=== PATIENT | male | born 2000 | race Hispanic/Latino ===

== ENCOUNTER 2024-08-14 12:53 | Inpatient (IN) | payer SELFPAY ==
[~2024-08-14] VITALS: Ht 165.1 cm; Wt 116.6 kg
[2024-08-14] VITALS (8 sets, daily range): BP systolic 113–151; BP diastolic 55–75; PULSE 81–100; RESP 10–28; TEMP 98.2–98.4; O2SAT 99–100
[2024-08-14] MEDS: ondanSETRON 4MG INJ IVP ONE (13:18)
[2024-08-14] MEDS: LIDOCAINE HCL 2% VISCOUS 15 ML UDCUP PO ONE (13:18)
[2024-08-14] MEDS: LACTATED RINGERS 1000ML 1,000 ML IV ONE (13:18)
[2024-08-14] MEDS: PANTOPrazole 40 MG/VIAL IVP ONE (13:18)
[2024-08-14] MEDS: MAG/ALUM/SIMETH 30 ML UDCUP PO ONE (13:18)
[2024-08-14 13:35] LABS: BASOPHILS # (AUTO) 0.05 K/uL (0.00-0.20); BASOPHILS % (AUTO) 0.4 % (0.0-5.0); EOSINOPHILS # (AUTO) 0.01 K/uL (0.00-0.70); EOSINOPHILS % (AUTO) 0.1 % (0.0-8.0); HEMATOCRIT 51.8 % (42-54); IMMATURE GRANULOCYTE ABSOLUTE 0.07 K/uL (0-1); LYMPHOCYTES # (AUTO) 0.7 K/uL (1.0-4.8); LYMPHOCYTES % (AUTO) 5.5 % (21.0-51.0); MEAN CORPUSCULAR HEMOGLOBIN 28.3 pg (27.0-33.0); MEAN CORPUSCULAR HGB CONC 32.2 g/dL (32.0-36.0); MEAN CORPUSCULAR VOLUME 87.6 fL (79-99); MONOCYTES # (AUTO) 0.6 K/uL (0.1-1.0); MONOCYTES % (AUTO) 4.2 % (3.0-13.0); NEUTROPHILS # (AUTO) 11.6 K/uL (1.8-7.7); NEUTROPHILS % (AUTO) 89.3 % (40.0-77.0); PLATELET COUNT (AUTO) 370 K/uL (130-400); RED BLOOD CELL COUNT(AUTO) 5.91 MIL/uL (4.50-6.20); RED CELL DISTRIBUTION WIDTH 15.6 % (11.0-15.5)
[2024-08-14 13:45] LABS: AMPHET/METH SCREEN,URINE NEGATIVE (NEGATIVE); BARBITURATE SCREEN, URINE NEGATIVE (NEGATIVE); BENZODIAZEPINES SCREEN,URINE NEGATIVE (NEGATIVE); CANNABINOID SCREEN,URINE POSITIVE (NEGATIVE); COCAINE SCREEN,URINE NEGATIVE (NEGATIVE); OPIATE SCREEN,URINE NEGATIVE (NEGATIVE); PHENCYCLIDINE SCREEN,URINE NEGATIVE (NEGATIVE)
[2024-08-14 13:48] LABS: APPEARANCE,URINE CLOUDY (CLEAR); BILIRUBIN,URINE NEGATIVE (NEGATIVE); COLOR,URINE LIGHT-YELLOW (YELLOW); GLUCOSE, URINE (UA) >=1000 mg/dL (NEGATIVE); KETONES,URINE 150 mg/dL (NEGATIVE); LEUKOCYTE ESTERASE ,URINE 500 Leu/uL (NEGATIVE); NITRATE,URINE NEGATIVE (NEGATIVE); OCCULT BLOOD,URINE MODERATE (NEGATIVE); PH,URINE 5.5 (5.0-8.0); PROTEIN,URINE 100 mg/dL (NEGATIVE); UROBILINOGEN,URINE 0.2 mg/dL (0.2-1.0)
[2024-08-14 13:50] LABS: ADD UA MICROSCOPIC YES
[2024-08-14 13:51] LABS: ALBUMIN 4.8 g/dL (3.5-5.0); BILIRUBIN,TOTAL 0.7 mg/dL (0.2-1.0); CREATININE 1.7 mg/dL (0.5-1.3); POTASSIUM 3.6 mmol/L (3.5-5.1); TOTAL PROTEIN, SERUM 9.8 g/dL (6.0-8.3)
[2024-08-14 13:53] LABS: BACTERIA,URINE FEW /HPF (None Seen); MUCUS,URINE RARE LPF (None Seen); SQUAMOUS EPITHELIAL CELL,UR FEW /HPF (0-2); WBC,URINE 26-50 /HPF (0-1)
[2024-08-14] MEDS: INSULIN humuLIN R 100 UNIT/ML 3ML IV ONE (14:14)
[2024-08-14 14:21] LABS: ABG BASE EXCESS -19.5 mmol/L (-2.0-3.0); ABG OXYGEN SATURATION 97.7 % (94.0-98.0); ABG PCO2 16 mmHg (35-48); ABG PH 7.194 (7.350-7.450); CARBON MONOXIDE 0.5 % (0.5-1.5); HHb 2.3; PO2, ARTERIAL BG 107.2 mmHg (83.0-108.0); VENT MODE, BG RA (ROOM AIR)
--- NOTE | 2024-08-14 14:41 | ERN ---
General Chief Complaint: Abdominal Pain Stated Complaint: ABDOMINAL PAIN Time Seen by MD: 12:56 Source: patient, EMS History of Present Illness Initial Comments PATIENT IS A 24-YEAR-OLD MALE COMING IN TO BE EVALUATED FOR NAUSEA AND VOMITING. PATIENT STATES THE SYMPTOMS BEGAN A COUPLE OF DAYS AGO. PATIENT ALSO STATES THAT HE DOES HAVE A HISTORY OF CANNABIS ABUSE BUT HAS NOT SMOKED CANNABIS IN A COUPLE OF THE MONTHS. Allergies: Coded Allergies: No Known Drug Allergies (Unverified Allergy, Unknown, 08/14/24) Past Medical History Past Medical History: No Pertinent History Past Surgical History: None ROS Dictation CONSTITUTIONAL: NO CHILLS, NO FEVER, WEAKNESS, DIAPHORESIS, MALAISE. HEAD/FACE: NO SIGNS OF TRAUMA. EENT: NO EYE PAIN, NO BLURRED VISION, NO TEARING, NO DOUBLE VISION, NO EAR PAIN, NO EAR DISCHARGE, NO NOSE PAIN, NO NASAL CONGESTION, NO THROAT PAIN, NO THROAT SWELLING, NO MOUTH PAIN. RESPIRATORY: NO COUGH, NO ORTHOPNEA, NO SOB, NO STRIDOR, NO WHEEZING. CARDIOVASCULAR: NO CHEST PAIN, NO EDEMA, NO PALPITATIONS, NO SYNCOPE. GASTROINTESTINAL/ABDOMINAL: NO ABDOMINAL PAIN, NO CONSTIPATION, NO DIARRHEA, NO NAUSEA, NO VOMITING. GENITOURINARY: NO ABNORMAL DISCHARGE, NO DYSURIA, NO FREQUENT URINATION, NO HEMATURIA. NO COMPLAINTS OF PAIN IN THE GENITALS. MUSCULOSKELETAL: NO BACK PAIN, NO GOUT, NO JOINT PAIN, NO JOINT SWELLING, NO MUSCLE PAIN, NO MUSCLE STIFFNESS, NO NECK PAIN. INTEGUMENTARY: NO CHANGE IN COLOR, NO CHANGE IN HAIR/NAILS, NO DRYNESS, NO LESION, NO LUMPS, NO RASH. NEUROLOGICAL/PSYCH: NO ANXIETY, NOT DEPRESSED, NO EMOTIONAL PROBLEM, NO HEADACHE, NO NUMBNESS, NO PRE-EXISTING DEFICIT, NO HISTORY OF SEIZURES, NO TREMORS, NO WEAKNESS. HEMATOLOGIC/LYMPHATIC: NOT ANEMIC, NO HISTORY OF BLOOD CLOTS, NO APPARENT BLEEDING, NO BRUISING, GLANDS NOT SWOLLEN. ALL SYSTEMS NEGATIVE, EXCEPT NOTED. Physical Exam Physical Exam Dictation VITAL SIGNS: REVIEWED. GENERAL APPEARANCE: ALERT, ORIENTED X3, ACUTE DISTRESS, OBESE. HEAD AND FACE: NON-TRAUMATIC. EYES: PERRL, PINK CONJUNCTIVAS, EYELID NO TRAUMA, ANTERIOR CHAMBER CLEAR. EARS: PINNAS INTACT AND NO SIGNS OF TRAUMA OR ERYTHEMA. EAR CANALS CLEAR AND NO DISCHARGE. TMS NO ERYTHEMA. NOSE: NO DISCHARGE, NO BLEEDING. OROPHARYNX: MOUTH NORMAL, TEETH NO CARIES, TONGUE PINK. PHARYNX CLEAR, NO ERYTHEMA. TONSILS NO EXUDATES, NO ABSCESSES NOTED. MUCOUS MEMBRANE MOIST. NECK: SUPPLE, NON-TENDER, NO THYROMEGALY, NO MASSES, NO JVD, NO BRUITS. BREAST: DEFERRED. CHEST: NO TENDERNESS, NO CREPITUS, NO PARADOXICAL MOVEMENT, NO RETRACTIONS. LUNGS: CLEAR, WELL-VENTILATED, SYMMETRIC, NO RALES, NO WHEEZING, NO RHONCHI, NO STRIDOR, GOOD BREATH SOUNDS BILATERALLY. HEART: REGULAR RATE, REGULAR RHYTHM, NO MURMUR, NO GALLOPS. VASCULAR: NO PERIPHERAL EDEMA. ABDOMEN: SOFT, POSITIVE BOWEL SOUNDS, NONDISTENDED, NO GUARDING, NONTENDER, NO REBOUND, NO MASSES NO HEPATOMEGALY, NO SPLENOMEGALY, NO PANDEY'S SIGN, NO HERNIAS. RECTAL: DEFERRED. GENITAL: DEFERRED. NEUROLOGICAL: NORMAL SPEECH, GROSS MOTOR FUNCTION INTACT, GROSS SENSORY FUNCTION INTACT. MUSCULOSKELETAL: NECK NONTENDER, FULL RANGE OF MOTION, BACK NONTENDER, FULL RANGE OF MOTION. EXTREMITIES: NONTENDER, FULL RANGE OF MOTION. SKIN: COLOR PINK, DRY, NO TURGOR, NO RASH, NO LACERATIONS, NO ABRASIONS, NO CONTUSIONS. LYMPHATICS: DEFERRED. Results Laboratory and Microbiology Lab and Micro Result Laboratory Tests Test 08/14/24 13:11 08/14/24 13:14 08/14/24 14:09 08/14/24 14:18 Urine Color LIGHT-YELLOW (YELLOW) Urine Appearance CLOUDY (CLEAR) H Urine pH 5.5 (5.0-8.0) Urine Specific [place] 1.030 (1.001-1.031) Urine Protein 100 mg/dL (NEGATIVE) H Urine Glucose (UA) >=1000 mg/dL (NEGATIVE) H Urine Ketones 150 mg/dL (NEGATIVE) H Urine Occult Blood MODERATE (NEGATIVE) H Urine Nitrate NEGATIVE (NEGATIVE) Urine Bilirubin NEGATIVE mg/dL (NEGATIVE) Urine Urobilinogen 0.2 mg/dL (0.2-1.0) Urine Leukocyte Esterase 500 Jun/uL (NEGATIVE) H Urine RBC 11-25 /HPF (0-1) H Urine WBC 26-50 /HPF (0-1) H Urine Squamous Epithelial Cells FEW /HPF (0-2) Urine Bacteria FEW /HPF (None Seen) Urine Opiates Screen NEGATIVE (NEGATIVE) Urine Barbiturates Screen NEGATIVE (NEGATIVE) Urine Phencyclidine Screen NEGATIVE (NEGATIVE) Urine Amphetamines Screen NEGATIVE (NEGATIVE) Urine Benzodiazepines Screen NEGATIVE (NEGATIVE) Urine Cocaine Screen NEGATIVE (NEGATIVE) Urine Marijuana (THC) Screen POSITIVE (NEGATIVE) H White Blood Count 13.0 K/uL (4.8-10.8) H Red Blood Count 5.91 MIL/uL (4.50-6.20) Hemoglobin 16.7 g/dL (14.0-18.0) Hematocrit 51.8 % (42-54) Mean Corpuscular Volume 87.6 fL (79-99) Mean Corpuscular Hemoglobin 28.3 pg (27.0-33.0) Mean Corpuscular Hemoglobin Concent 32.2 g/dL (32.0-36.0) Red Cell Distribution Width 15.6 % (11.0-15.5) H Platelet Count 370 K/uL (130-400) Mean Platelet Volume 13.1 fL (7.5-10.5) H Immature Granulocyte % (Auto) 0.5 % (0-1) Neutrophils (%) (Auto) 89.3 % (40.0-77.0) H Lymphocytes (%) (Auto) 5.5 % (21.0-51.0) L Monocytes (%) (Auto) 4.2 % (3.0-13.0) Eosinophils (%) (Auto) 0.1 % (0.0-8.0) Basophils (%) (Auto) 0.4 % (0.0-5.0) Neutrophils # (Auto) 11.6 K/uL (1.8-7.7) H Lymphocytes # (Auto) 0.7 K/uL (1.0-4.8) L Monocytes # (Auto) 0.6 K/uL (0.1-1.0) Eosinophils # (Auto) 0.01 K/uL (0.00-0.70) Basophils # (Auto) 0.05 K/uL (0.00-0.20) Absolute Immature Granulocyte (auto 0.07 K/uL (0-1) Nucleated Red Blood Cells 0.0 % (0.0-0.19) White Cell Morphology Comment See comments Sodium Level 132 mmol/L (136-145) L Potassium Level 3.6 mmol/L (3.5-5.1) Chloride Level 95 mmol/L (101-111) L Carbon Dioxide Level 11 mmol/L (21-32) L Blood Urea Nitrogen 10 mg/dL (7-18) Creatinine 1.7 mg/dL (0.5-1.3) H Glomerular Filtration Rate Calc 57 mL/min (>90) Random Glucose 439 mg/dL (70-105) *H Total Calcium 9.2 mg/dL (8.5-10.1) Total Bilirubin 0.7 mg/dL (0.2-1.0) Aspartate Amino Transf (AST/SGOT) 16 U/L (10-37) Alanine Aminotransferase (ALT/SGPT) 47 U/L (12-78) Alkaline Phosphatase 152 U/L (50-136) H Total Creatine Kinase 153 U/L (21-232) Total Protein 9.8 g/dL (6.0-8.3) H Albumin 4.8 g/dL (3.5-5.0) Lipase 165 U/L (16-77) H Whole Blood Ketones Quantitative 5.2 mmol/L (0.0-0.6) H Blood Gas Specimen Type Arterial Arterial Blood pH 7.194 (7.350-7.450) Arterial Blood Partial Pressure CO2 16 mmHg (35-48) *L Arterial Blood Partial Pressure O2 107.2 mmHg (83.0-108.0) Arterial Blood HCO3 6.0 mmol/L (21.0-28.0) L Arterial Blood Oxygen Saturation 97.7 % (94.0-98.0) Arterial Blood Base Excess -19.5 mmol/L (-2.0-3.0) L Hemoglobin (Blood Gas) 15.5 g/dL (13.5-17.5) Sodium (Blood Gas) 134 MMOL/L (136-145) L Bedside Potassium (Blood Gas) 3.9 MMOL/L (3.4-4.5) Bedside Chloride (Blood Gas) 104 MMOL/L (98-107) Bedside Glucose (Blood Gas) 418 MG/DL (65-95) H Bedside Ionized Calcium (Blood Gas) 1.33 MMOL/L (1.15-1.33) Bedside Lactic Acid (Blood Gas) 1.72 MMOL/L (0.36-0.75) H Blood Gas Temperature 37.0 CELSIUS (35.5-37.0) Blood Gas Vent Mode RA (ROOM AIR) FiO2 21.0 % Blood Gas Specimen Comment RR, Labs Reviewed?: Yes EKG/XRAY/US/CT/MRI EKG Comment 04/13/2024 TIME 2:48 P.M. VENTRICULAR RATE [address] [place] [address] WAVE ELEVATION OR DEPRESSION MDM MDM: DIFFERENTIAL DIAGNOSIS: DKA, NAUSEA AND VOMITING, CANNABIS ABUSE RATIONALE: TESTS CONSIDERED AND ORDERED SECONDARY TO SHARED DECISION MAKING INCLUDE: PREVIOUS OUTSIDE RECORDS REVIEWED: OLD ER VISITS. RISK OF COMPLICATION AND/OR MORBIDITY OR MORTALITY OF PATIENT MANAGEMENT: NONE MEDICATIONS-PER MEDICATION RECONCILIATION NEED FOR HOSPITALIZATION: PATIENT DOES NOT MEET CRITERIA FOR HOSPITALIZATION. NEED FOR EMERGENCY MAJOR/MINOR SURGERY: NO THERE ARE NO SOCIAL CONCERNS WITH THIS PATIENT. PRESCRIPTION DRUG MANAGEMENT PRESCRIPTIONS WILL INCLUDE SYMPTOMATIC CARE PATIENT'S PRIOR EXTERNAL MEDICAL RECORDS FROM OTHER ER VISITS WERE REVIEWED BY ME INDICATED. PRIOR TESTING AND RESULTS FROM PREVIOUS VISITS WERE REVIEWED. PRIOR TESTS WERE TAKEN INTO ACCOUNT WITH MEDICAL DECISION MAKING AND RESOURCE UTILIZATION, INDEPENDENT HISTORIAN/HISTORIANS WERE USED TO OBTAIN COMPLETE MEDICAL HISTORY. I INDEPENDENTLY INTERPRETED THE TEST THAT WERE PERFORMED, RESULTS WERE REVIEWED BY ME AND CONSIDERED FINDINGS ON RADIOLOGY IF ORDERED. MEDICAL MANAGEMENT AND EXAMINATION INTERPRETATION DISCUSSIONS WERE HAD BY ME WITH OTHER QUALIFIED HEALTHCARE PROFESSIONALS INDICATED FOR THE PATIENT'S CARE. pt WILL BE ADMITTED UNDER THE CARE OF HOSPITALIST GROUP FOR ONGOING MANAGEMENT OF DKA. ED Course Orders Procedure Category Date Status Time Cbc With Differential LAB 08/14/24 Complete 13: Comprehensive LAB 08/14/24 Complete Metabolic Panel 13:02 Urinalysis Profile LAB 08/14/24 Complete 13:02 Lactated Ringers PHA 08/14/24 Complete 1000ml (Lactated 13:30 Ondansetron 4mg Inj PHA 08/14/24 Complete (Zofran 4mg Inj) 13:30 Lidocaine Hcl 2% PHA 08/14/24 Complete Viscous (Lidocaine Hcl 13:30 Mag/Alum/Simeth 30ml PHA 08/14/24 Complete (Maalox Plus 30ml) 13:30 Pantoprazole 40mg Inj PHA 08/14/24 Complete (Protonix 40mg Inj 13:30 Creatine Kinase, Total LAB 08/14/24 Complete 13:02 Lipase LAB 08/14/24 Complete 13:02 Drug Screen Urine LAB 08/14/24 Complete 13:02 Culture Urine PINO 08/14/24 In Process 13:50 Insulin Regular, PHA 08/14/24 Complete Human 3ml (Humulin R 14:00 Arterial Blood Gas + RT 08/14/24 Transmitted 14:01 Ketone Blood LAB 08/14/24 Complete Quantitative 14:01 Arterial Blood Gas LAB 08/14/24 Complete Arterial + 14:18 12 Lead Ekg Tracing- EKG 08/14/24 Logged Technical 14:41 Dka Prtcl:Restrict To CPOE 08/14/24 Transmitted Icu/Ccu 14:42 Dka Protcl:Dc All CPOE 08/14/24 Transmitted Meds/Feeding 14:42 Dka Protocol: Bmp Q4h CPOE 08/14/24 Transmitted Until 14:42 Basic Metabolic Panel LAB 08/14/24 In Process 14:42 Basic Metabolic Panel LAB 08/14/24 Logged 18:42 Basic Metabolic Panel LAB 08/14/24 Logged 22:42 Basic Metabolic Panel LAB 08/15/24 Verified 02:42 Basic Metabolic Panel LAB 08/15/24 Verified 06:42 Basic Metabolic Panel LAB 08/15/24 Verified 10:42 Basic Metabolic Panel LAB 08/15/24 Verified 14:42 Basic Metabolic Panel LAB 08/15/24 Verified 18:42 0.9%Nacl 1000ml (Ns PHA 08/14/24 In Process 1000ml) 15:00 D5w-1/2 Ns/20meq Kcl PHA 08/14/24 In Process (D5w-1/2 Ns/20meq K 15:00 Potassium Chloride PHA 08/14/24 Logged 20meq/10ml (Kcl 20meq 15:00 Magnesium 2gm Premix PHA 08/14/24 In Process 50ml (Magnesium 2gm 15:00 Insulin Regular, PHA 08/14/24 Logged Human 3ml (Humulin R 15:00 Mannitol 20% 250ml PHA 08/14/24 Logged Bag (Osmitrol 20% 250 15:00 Dka Protocol: Bs, Vs, CPOE 08/14/24 Transmitted Neuro 14:42 Dextrose 5 %-0.45 % PHA 08/14/24 In Process Nacl (D5 1/2ns) 15:00 Current Medications Medications (Trade) Dose Ordered Sig/Rocio Route PRN Reason Start Time Stop Time Status Last Admin Dose Admin Al Hydroxide/Mg Hydroxide (MAALox PLUS 30ML) 30 ml ONCE ONCE PO 08/14/24 13:30 08/14/24 13:31 DC 08/14/24 13:18 Dextrose/Sodium Chloride 1,000 ml @ 0 mls/hr AD IV 08/14/24 15:00 09/13/24 14:59 Insulin Human Regular (humuLIN R 100 UNIT/ML 3ML) 5 unit ONCE ONCE IV 08/14/24 14:00 08/14/24 14:01 DC 08/14/24 14:14 Insulin Human Regular 100 unit/ Sodium Chloride 101 ml @ 0 mls/hr PROTOCOL IV 08/14/24 15:00 09/13/24 14:59 UNV Lactated Ringer's 1,000 ml @ 0 mls/hr ONCE ONCE IV 08/14/24 13:30 08/14/24 13:31 DC 08/14/24 13:18 Lidocaine HCl (Lidocaine HCl 2% Viscous) 10 ml ONCE ONCE PO 08/14/24 13:30 08/14/24 13:31 DC 08/14/24 13:18 Magnesium Sulfate 50 ml @ 0 mls/hr PROTOCOL IV 08/14/24 15:00 09/13/24 14:59 Mannitol (Osmitrol 20% 250ml Bag) 58 gm AD IV 08/14/24 15:00 08/15/24 15:01 UNV Ondansetron HCl (zoFRAN 4MG INJ) 4 mg ONCE ONCE IVP 08/14/24 13:30 08/14/24 13:31 DC 08/14/24 13:18 Pantoprazole Sodium (PROTonix 40MG INJ) 40 mg ONCE ONCE IVP 08/14/24 13:30 08/14/24 13:31 DC 08/14/24 13:18 Potassium Chloride 20 meq/ Sodium Chloride 1,010 ml @ 0 mls/hr PROTOCOL IV 08/14/24 15:00 09/13/24 14:59 UNV Potassium Chloride/Dextrose/ Sod Cl 1,000 ml @ 0 mls/hr AD IV 08/14/24 15:00 09/13/24 14:59 Sodium Chloride 1,000 ml @ 200 mls/hr PROTOCOL IV 08/14/24 15:00 09/13/24 14:59 Vital Signs Date Time Temp Pulse Resp B/P (MAP) Pulse Ox O2 Delivery O2 Flow Rate FiO2 08/14/24 14:00 99.3 88 18 146/78 99 Room Air* 0 21 11/3/24 12:55 98.8 110 20 157/65 97 0 Critical Care Note Comments Critical Care Procedure Note Authorized and Performed by: me Total critical care time: Approximately 36 minutes Due to a high probability of clinically significant, life threatening deterioration, the patient required my highest level of preparedness to intervene emergently and I personally spent this critical care time directly and personally managing the patient. This critical care time included obtaining a history; examining the patient; pulse oximetry; ordering and review of studies; arranging urgent treatment with development of a management plan; evaluation of patient's response to treatment; frequent reassessment; and, discussions with other providers. This critical care time was performed to assess and manage the high probability of imminent, life-threatening deterioration that could result in multi-organ failure. It was exclusive of separately billable procedures and treating other patients and teaching time. Please see MDM section and the rest of the note for further information on patient assessment and treatment. DX & DISP Disposition: Inpatient Decision to Admit Time: 15:03 Departure Impression: Primary Impression: DKA (diabetic ketoacidosis) Condition: Stable Referrals: SELF,REFERRAL (PCP) ALBA HOFFMAN MD Aug 14, 2024 14:41
[2024-08-14] MEDS ORDERED: DEXTROSE 5 %-0.45 % NACL 1,000 ML IV SCH (15:00)
[2024-08-14] MEDS ORDERED: MANNITOL 20% 250ML IV.SOLN IV SCH (15:00)
[2024-08-14 15:01] LABS: CREATININE 1.4 mg/dL (0.5-1.3); POTASSIUM 4.2 mmol/L (3.5-5.1)
[2024-08-14] MEDS: PoTASSium chloRIDE 20MEQ/10ML 20 MEQ in 0.9%NACL 1000ML 1,000 ML IV SCH (15:12)
[2024-08-14] MEDS: INSULIN REGULAR, HUMAN 3ML 100 UNIT in 0.9%NACL 100ML 100 ML IV SCH (15:16)
[2024-08-14] MEDS: 0.9%NACL 1000ML 1,000 ML IV SCH (15:16)
[2024-08-14] MEDS ORDERED: MANNITOL 20% 500ML BAG 500 ML IV SCH (15:30)
--- NOTE | 2024-08-14 15:30 | EKG ---
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
--- NOTE | 2024-08-14 15:45 | HP ---
[facility]ISTORY [facility] PHYS[facility] Date of Service: Aug 14, 2024 Time of Service: 15:45 HISTORY OF PRESENT ILLNESS: DATE OF SERVICE: 08/14/2024 A 24-year-old male with no significant past medical history who presented to the hospital secondary to nausea, vomiting. The patient states his symptoms began around 2-3 days ago which was associated with nausea and episodes of vomiting. He denies any chest pain, shortness of breath, abdominal pain, dysuria, falls, syncopal episode, chest pain. He denies any history of diabetes in the past and currently does not take any medications. He states his grandmother has history of diabetes. He denied any previous hospitalizations. He also noted increasing thirst with very frequent urination. Denied any previous history of DKA or needing any hospitalizations for DKA in the past. Denied any cough, shortness of breath, arthralgia, myalgia. Labs in the ED were notable for white count of 13.0, hemoglobin was 16.7, platelet count was 370k, sodium was 132, potassium was 3.6, blood glucose was 439, alk-phos was mildly elevated, total protein was 9.8, lipase was 165, blood ketones was 5.2. Blood gas was notable for pH of 7.19/16/107.2/6.0 REVIEW OF SYSTEMS CONSTITUTIONAL: Denies fevers, chills, or night sweats. No unintentional weight loss reported. NEUROLOGICAL: Denies headache, amaurosis fugax, motor weakness, sensory deficit, vertigo/spinning sensation, gait abnormalities, or tremors. ENT: No hearing loss, otalgia, otorrhea, rhinitis, rhinorrhea, hoarseness, or sore throat. CARDIOVASCULAR: Denies any exertional angina, dyspnea on exertion, orthopnea, paroxysmal nocturnal dyspnea, palpitations, life-threatening arrhythmias, claudication. PULMONARY: Denies any shortness of breath, cough, phlegm/sputum, hemoptysis, pleuritic chest pain. SLEEP: Denies morning headaches, daytime somnolence or napping. Denies diffic ulty falling asleep, staying asleep, waking from sleep. Denies knowledge of snoring. GASTROINTESTINAL: Positive for nausea, vomiting. Denied any abdominal pain, constipation, diarrhea, melena, hematochezia, hematemesis GENITOURINARY: Denies frequency, urgency, nocturia, hematuria or incontinence (Storage/Irritative symptoms.) Low urinary stream, straining to void, urinary intermittency or hesitancy, splitting of the voiding stream, terminal dribbling. ENDOCRINOLOGIC: Denies polyuria, polydipsia, polyphagia or heat/cold intolerances. HEMATOLOGIC: Denies thrombophilia/previous clots, or coagulopathy/bleeding disorders. ONCOLOGIC: Denies personal history of malignancy. DERMATOLOGIC: Denies rashes or pruritus. PSYCHIATRIC: Denies any suicidal or homicidal ideation. Denies hallucinations. PAST MEDICAL HISTORY: No significant past medical history PAST SURGICAL HISTORY: Denied any previous surgical history PAST SOCIAL HISTORY: He smokes around 1-2 cigarettes per week. He drinks six pack every weekend for three years. Also uses marijuana. Denied any other drug use FAMILY HISTORY: History of diabetes in grandmother Coded Allergies: No Known Drug Allergies (Unverified Allergy, Unknown, 08/14/24) PHYSICAL EXAM GENERAL APPEARANCE: The patient is awake, alert, and oriented, in no acute cardiopulmonary distress. Patient is obese NEUROLOGICAL: Cranial nerves II-XII grossly intact. Motor is 5/5 in bilateral upper and lower extremities proximal to distal. No sensory deficits. HEENT: Face is symmetric. Pupils are equal and reactive. Extraocular movements are intact. NECK: Supple. No JVD. No thyromegaly. No submental, submandibular, pre- /postauricular, occipital or supraclavicular lymphadenopathy. CHEST: Normal chest expansion. No Telemetry. LUNGS: Absence of any rales, rhonchi or any wheezing. CARDIOVASCULAR: Regular. S1 and S2 normal. No appreciable rubs, murmurs or gallops. ABDOMEN: Soft, nontender, and nondistended. There is no rebound, voluntary guarding, or rigidity. : Deferred. No Moore. EXTREMITIES: Non-edematous and not cyanotic. No clubbing. Good capillary refill. SKIN: No skin breakdown. Vital Sign (Last 24 Hours) 08/14/24 08/14/24 14:59 15:30 Temp 99.0 Pulse 99 Resp 24 B/P (MAP) 159/82 Pulse Ox 100 O2 Delivery Room Air* O2 Flow Rate 0 FiO2 21 LABS: Laboratory: Test 08/14/24 15:05 08/14/24 14:18 08/14/24 14:09 08/14/24 13:14 Range/Units Whole Blood Glucose 367 H 70-110 MG/DL Blood Gas Specimen Type Arterial Arterial Blood pH 7.194 *L 7.350-7.450 Arterial Blood Partial Pressure CO2 16 *L 35-48 mmHg Arterial Blood Partial Pressure O2 107.2 83.0-108.0 mmHg Arterial Blood HCO3 6.0 L 21.0-28.0 mmol/L Arterial Blood Oxygen Saturation 97.7 94.0-98.0 % Arterial Blood Base Excess -19.5 L -2.0-3.0 mmol/L Hemoglobin (Blood Gas) 15.5 13.5-17.5 g/dL Sodium (Blood Gas) 134 L 136-145 MMOL/L Bedside Potassium (Blood Gas) 3.9 3.4-4.5 MMOL/L Bedside Chloride (Blood Gas) 104 98-107 MMOL/L Bedside Glucose (Blood Gas) 418 H 65-95 MG/DL Bedside Ionized Calcium (Blood Gas) 1.33 1.15-1.33 MMOL/L Bedside Lactic Acid (Blood Gas) 1.72 H 0.36-0.75 MMOL/L Blood Gas Temperature 37.0 35.5-37.0 CELSIUS Blood Gas Vent Mode RA ROOM AIR FiO2 21.0 % Blood Gas Specimen Comment DR.REYNA ARACELI Sodium Level 131 L 136-145 mmol/L Potassium Level 4.2 3.5-5.1 mmol/L Chloride Level 97 L 101-111 mmol/L Carbon Dioxide Level 12 L 21-32 mmol/L Blood Urea Nitrogen 9 7-18 mg/dL Creatinine 1.4 H 0.5-1.3 mg/dL Glomerular Filtration Rate Calc 72 >90 mL/min Random Glucose 418 *H 70-105 mg/dL Whole Blood Ketones Quantitative 5.2 H 0.0-0.6 mmol/L Total Calcium 8.7 8.5-10.1 mg/dL White Blood Count 13.0 H 4.8-10.8 K/uL Red Blood Count 5.91 4.50-6.20 MIL/uL Hemoglobin 16.7 14.0-18.0 g/dL Hematocrit 51.8 42-54 % Mean Corpuscular Volume 87.6 79-99 fL Mean Corpuscular Hemoglobin 28.3 27.0-33.0 pg Mean Corpuscular Hemoglobin Concent 32.2 32.0-36.0 g/dL Red Cell Distribution Width 15.6 H 11.0-15.5 % Platelet Count 370 130-400 K/uL Mean Platelet Volume 13.1 H 7.5-10.5 fL Immature Granulocyte % (Auto) 0.5 0-1 % Neutrophils (%) (Auto) 89.3 H 40.0-77.0 % Lymphocytes (%) (Auto) 5.5 L 21.0-51.0 % Monocytes (%) (Auto) 4.2 3.0-13.0 % Eosinophils (%) (Auto) 0.1 0.0-8.0 % Basophils (%) (Auto) 0.4 0.0-5.0 % Neutrophils # (Auto) 11.6 H 1.8-7.7 K/uL Lymphocytes # (Auto) 0.7 L 1.0-4.8 K/uL Monocytes # (Auto) 0.6 0.1-1.0 K/uL Eosinophils # (Auto) 0.01 0.00-0.70 K/uL Basophils # (Auto) 0.05 0.00-0.20 K/uL Absolute Immature Granulocyte (auto 0.07 0-1 K/uL Nucleated Red Blood Cells 0.0 0.0-0.19 % White Cell Morphology Comment See comments Total Bilirubin 0.7 0.2-1.0 mg/dL Aspartate Amino Transf (AST/SGOT) 16 10-37 U/L Alanine Aminotransferase (ALT/SGPT) 47 12-78 U/L Alkaline Phosphatase 152 H 50-136 U/L Total Creatine Kinase 153 21-232 U/L Total Protein 9.8 H 6.0-8.3 g/dL Albumin 4.8 3.5-5.0 g/dL Lipase 165 H 16-77 U/L Test 08/14/24 13:11 Range/Units Urine Color LIGHT-YELLOW YELLOW Urine Appearance CLOUDY H CLEAR Urine pH 5.5 5.0-8.0 Urine Specific [place] 1.030 1.001-1.031 Urine Protein 100 H NEGATIVE mg/dL Urine Glucose (UA) >=1000 H NEGATIVE mg/dL Urine Ketones 150 H NEGATIVE mg/dL Urine Occult Blood MODERATE H NEGATIVE Urine Nitrate NEGATIVE NEGATIVE Urine Bilirubin NEGATIVE NEGATIVE mg/dL Urine Urobilinogen 0.2 0.2-1.0 mg/dL Urine Leukocyte Esterase 500 H NEGATIVE Jun/uL Urine RBC 11-25 H 0-1 /HPF Urine WBC 26-50 H 0-1 /HPF Urine Squamous Epithelial Cells FEW 0-2 /HPF Urine Bacteria FEW None Seen /HPF Urine Opiates Screen NEGATIVE NEGATIVE Urine Barbiturates Screen NEGATIVE NEGATIVE Urine Phencyclidine Screen NEGATIVE NEGATIVE Urine Amphetamines Screen NEGATIVE NEGATIVE Urine Benzodiazepines Screen NEGATIVE NEGATIVE Urine Cocaine Screen NEGATIVE NEGATIVE Urine Marijuana (THC) Screen POSITIVE H NEGATIVE Current Medications Medications (Trade) Dose Ordered Sig/Rocio Route PRN Reason Start Time Stop Time Status Last Admin Dose Admin Acetaminophen (TYLenol 500MG TAB) 500 mg Q6H PRN PO MILD PAIN (1-3) 08/14/24 15:30 09/13/24 15:29 Ceftriaxone Sodium (Rocephin 2gm Inj) 2 gm Q24H IVPB 08/14/24 16:00 08/19/24 15:59 UNV Dextrose/Sodium Chloride 1,000 ml @ 0 mls/hr AD IV 08/14/24 15:00 09/13/24 14:59 Enoxaparin Sodium (Lovenox) 30 mg DAILY SQ 08/15/24 09:00 09/14/24 08:59 Famotidine (Pepcid 20mg Vial) 20 mg BID IV 08/14/24 21:00 09/13/24 20:59 Insulin Human Regular 100 unit/ Sodium Chloride 101 ml @ 0 mls/hr PROTOCOL IV 08/14/24 15:00 09/13/24 14:59 08/14/24 15:16 11.6 MLS/HR Lactated Ringer's (Lactated Ringers 1000ml) 1,000 ml ONCE IV 08/14/24 16:00 09/13/24 15:59 UNV Magnesium Sulfate 50 ml @ 0 mls/hr PROTOCOL IV 08/14/24 15:00 09/13/24 14:59 Mannitol 292 ml @ 292 mls/hr AD IV 08/14/24 15:30 08/14/24 15:06 DC Mannitol (Osmitrol 20% 250ml Bag) 58 gm AD IV 08/14/24 15:00 08/15/24 15:01 UNV Potassium Chloride 20 meq/ Sodium Chloride 1,010 ml @ 0 mls/hr PROTOCOL IV 08/14/24 15:00 09/13/24 14:59 08/14/24 15:12 150 MLS/HR Potassium Chloride/Dextrose/ Sod Cl 1,000 ml @ 0 mls/hr AD IV 08/14/24 15:00 09/13/24 14:59 Sodium Chloride 1,000 ml @ 200 mls/hr PROTOCOL IV 08/14/24 15:00 09/13/24 14:59 08/14/24 15:16 200 MLS/HR DIAGNOSTICS / RADIOLOGY: [ ] ASSESSMENT: Diabetic ketoacidosis POA Metabolic acidosis secondary to DKA Pseudohyponatremia secondary to hyperglycemia Diabetes mellitus type 2 BASHIR Suspected UTI Leukocytosis Dehydration History of alcohol use History of marijuana use History of smoking PLAN: - patient to be admitted to ICU -in reference to DKA. Patient will be started on insulin drip and DKA protocol. Check BMP q.4 hours and replete potassium protocol. We will request consultation with critical Care. Additionally we will request consultation with endocrinology. Appreciate recommendations. -check TSH, A1c, procalcitonin, CRP - - patient was counseled against tabacco use and decreasing alcohol intake and stopping marijuana. Pt was agreeable. Plan of care was discussed with patient at bedside. Advanced Care Planning Which of the following were discussed: Hospice care: Yes __ No _x_ Therapeutic options: Yes __ No __ Advance directives: Yes __ No __ Other discussions: Pt is full code Discussed with who?: patient (Patient, family or surrogates) Voluntary nature of this service was explained to the patient? Yes _x_ No __ Amount of time spent: 25 minutes MAYELIN Walsh MD, MD Aug 14, 2024 15:45
--- NOTE | 2024-08-14 15:51 | CONS ---
[facility] CONSULTATION NOTE Date Patient Seen: Aug 14, 2024 Time of Visit: 15:46 Supervising Physician: Dr. Joel Reason for Consultation: [facility] Primary Care Physician: No PCP- Outpatient Specialists: NA Inpatient Consults: Dr. Joel PROBLEM LIST: Diabetic ketoacidosis- never been diagnosed with diabetes before- diet high in calories: Coke, alcohol Sepsis Acute renal failure 2/2 ATN from sepsis/ dehydration Acute cystitis Substance abuse: marijuana, alcohol Pseudohyponatremia secondary to hyperglycemia Penile excoriation Acute pancreatitis Hypertension Morbid obesity BMI of 42 HPI: This is a 24-year-old male with no past medical history who came to the hospital with complaint of nausea and vomiting. [facility] is consulted for critical care management. Patient reported to have been nauseous and vomiting since or Thursday. Other symptom include headache. Patient reported that he has burning sensation when he voids. According to the patient, he has never been diagnosed with diabetes mellitus although his family has told him that he might have diabetes. He has no family history of diabetes. According to the patient's fiancee, patient is drinking 2 big cups of regular coke on a daily basis. He also drinks beer on the weekend. Patient admits using marijuana and smoking cigarette 2-3 cigarettes per day. He denies any other illicit drug use. He is currently unemployed, but his fiancee works at [employer] in the [place]. In ED patient was found to have sodium 132 potassium 3.6 bicarb was 11 BUN 10 creatinine is 1.7 glucose is 439. Lipase 165. Hematology with WBC of 13. Toxicology is positive marijuana. His urinalysis with cloudy appearance, positive protein, glucose, ketone, blood. Positive for leukocyte esterase 500, WBC 26 to 50. Ketone of 5.2. PAST MEDICAL HX: None PAST SURGICAL HX: None SOCIAL HISTORY: Smoking cigarette 2-3 cigarette a day, since he was 14 years old Drinking beer on weekend Using Marijuana Lives with Sociiancee Coded Allergies: No Known Drug Allergies (Unverified Allergy, Unknown, 08/14/24) REVIEW OF SYSTEMS: General: No Fever, No Chills, No Night Sweats, No Fatigue, No Malaise, No Appetite HEENT: No Head Aches, No Visual Changes, No Eye Pain, No Ear Pain, No Dysphasia, No Sinus Congestion, No Post Nasal Drip, No Sore Throat Pulmonary: No Dyspnea; No Cough, No Pleuritic Chest Pain Cardiovascular: No: Chest Pain, Palpitations, Orthopnea, Paroxysmal Noc. Dyspnea, Edema, Lt Headedness Gastrointestinal: No: Nausea, Vomiting, Abdominal Pain, Diarrhea, Constipation, Melena, Hematochezia Genitourinary: yes Dysuria, No Frequency, No Incontinence, No Hematuria, No Retention Musculoskeletal: No: other, neck pain, shoulder pain, arm pain, back pain, hand pain, leg pain, foot pain Skin: No Urticaria, No Rash Neurological: No: Weakness, Numbness, Incoordination, Change in speech, Confusion, Seizures PHYSICAL EXAM: GENERAL: alert, weak, awake oriented x 3. Obese HEENT: EOMI, Sclera non icteric, moist mucosa NECK: Supple, no JVD, trachea midline LUNGS: Clear breath sounds bilaterally. No wheezes HEART: Regular rate and rhythm. Normal S1 and S2, without murmurs ABD: Abdomen soft, nontender. Bowel sounds present : Excoriation to penile meatus, uncircumcised EXT: No clubbing cyanosis or edema NEURO: Alert and oriented to person, follows commands Vital Signs (last 8hr) Date Time Temp Pulse Resp B/P (MAP) Pulse Ox O2 Delivery O2 Flow Rate FiO2 08/14/24 14:59 99.0 103 23 156/84 100 Room Air* 0 21 08/14/24 14:00 99.3 88 18 146/78 99 Room Air* 0 21 08/14/24 12:55 98.8 110 20 157/65 97 0 LABS: Hematology Labs: Test 08/14/24 13:14 Range/Units White Blood Count 13.0 H 4.8-10.8 K/uL Red Blood Count 5.91 4.50-6.20 MIL/uL Hemoglobin 16.7 14.0-18.0 g/dL Hematocrit 51.8 42-54 % Mean Corpuscular Volume 87.6 79-99 fL Mean Corpuscular Hemoglobin 28.3 27.0-33.0 pg Mean Corpuscular Hemoglobin Concent 32.2 32.0-36.0 g/dL Red Cell Distribution Width 15.6 H 11.0-15.5 % Platelet Count 370 130-400 K/uL Mean Platelet Volume 13.1 H 7.5-10.5 fL Immature Granulocyte % (Auto) 0.5 0-1 % Neutrophils (%) (Auto) 89.3 H 40.0-77.0 % Lymphocytes (%) (Auto) 5.5 L 21.0-51.0 % Monocytes (%) (Auto) 4.2 3.0-13.0 % Eosinophils (%) (Auto) 0.1 0.0-8.0 % Basophils (%) (Auto) 0.4 0.0-5.0 % Neutrophils # (Auto) 11.6 H 1.8-7.7 K/uL Lymphocytes # (Auto) 0.7 L 1.0-4.8 K/uL Monocytes # (Auto) 0.6 0.1-1.0 K/uL Eosinophils # (Auto) 0.01 0.00-0.70 K/uL Basophils # (Auto) 0.05 0.00-0.20 K/uL Absolute Immature Granulocyte (auto 0.07 0-1 K/uL Nucleated Red Blood Cells 0.0 0.0-0.19 % White Cell Morphology Comment See comments Chemistry Labs: Test 08/14/24 15:05 08/14/24 14:09 08/14/24 13:14 Range/Units Whole Blood Glucose 367 H 70-110 MG/DL Sodium Level 131 L 136-145 mmol/L Potassium Level 4.2 3.5-5.1 mmol/L Chloride Level 97 L 101-111 mmol/L Carbon Dioxide Level 12 L 21-32 mmol/L Blood Urea Nitrogen 9 7-18 mg/dL Creatinine 1.4 H 0.5-1.3 mg/dL Glomerular Filtration Rate Calc 72 >90 mL/min Random Glucose 418 *H 70-105 mg/dL Whole Blood Ketones Quantitative 5.2 H 0.0-0.6 mmol/L Total Calcium 8.7 8.5-10.1 mg/dL Total Bilirubin 0.7 0.2-1.0 mg/dL Aspartate Amino Transf (AST/SGOT) 16 10-37 U/L Alanine Aminotransferase (ALT/SGPT) 47 12-78 U/L Alkaline Phosphatase 152 H 50-136 U/L Total Creatine Kinase 153 21-232 U/L Total Protein 9.8 H 6.0-8.3 g/dL Albumin 4.8 3.5-5.0 g/dL Lipase 165 H 16-77 U/L DIAGNOSTICS / RADIOLOGY RESULTS: Chest xray pending PLAN NEURO: Minimize central acting medications as possible. Fall Precautions. Well lighted room through the day and minimize interruptions through the night to prevent acute delirium. PULMONARY: Supplemental 02 as needed Titrate Fio2 to keep Spo2 > or = 90% DuoNebs and CPT as needed IS hourly while awake for pulmonary hygiene Out of bed to chair as tolerated Obtain Chest xray CARDIOVASCULAR: Follow hemodynamics. Titrate vasopressor to keep MAP >65 or systolic blood pressure >95mmHg DRIPS: Insulin LINES: PIV GI & NUTRITION: Continue nutritional support Aspirations precautions Prokinetic agents and laxatives as needed KIDNEYS & ELECTROLYTES: Strict monitoring of intake and output Daily weights Avoid nephrotoxic agents Monitor electrolytes and replace as needed Goal urine output of 30mL/hr or 0.5mL/kg/hr ENDOCRINE: Maintain blood glucose between 100-180 at all times. Insulin sliding scale for blood glucose management ISS Start long acting Check triglyceride Lipase trend INFECTIOUS DISEASE: Trend temperature. Fitzgerald-culture if febrile. Micro: Urine Blood Check for chlamydia and gonorrhea Antibiotics: Rocephin HEMATOLOGY & COAGULATION: Monitor H&H. Keep Hgb > 7 Transfuse 1 unit of PRBC for Hgb < 7 Transfuse 1 pack of platelets of platelets < 20, 000 Watch for any signs and symptoms of bleeding SKIN: Pressure ulcer prevention per facility protocol Rehab: PT/OT Prophylaxis: GI: Pepcid DVT: Lovenox Code Status: Full Resuscitation Disposition: ICU Other: Total patient care time exceeds 35 minutes excluding all procedures. Field Producer for diabetic education Counseled for smoking, alcohol, and Marijuana cessation Embrace healthier life style Case was discussed and seen with my supervising physician. The above plan was formulated and agreed upon. KRISTEN SHEPPARD [facility] Aug 14, 2024 15:51
[2024-08-14] MEDS: LACTATED RINGERS 1000ML IV SCH (16:10)
[2024-08-14] MEDS: CEFTRIAXONE 2GM VIAL IVPB SCH (16:10)
[2024-08-14] MEDS: acetaMINOPHEN 500 MG TABLET PO PRN (16:14)
[2024-08-14 16:30] LABS: HEMOGLOBIN A1C 11.1 % (4.0-6.0)
[2024-08-14 16:39] LABS: THYROID STIMULATING HORMONE 8.73 uIU/mL (0.36-3.74)
--- NOTE | 2024-08-14 17:13 | HMCIMG ---
CHEST 1VW CLINICAL HISTORY: admit, sepsis COMPARISON: 11/24/2004 TECHNIQUE: Single view of the chest was obtained. FINDINGS: Lungs are clear. The cardiac size and mediastinum are unremarkable. The bony structures are within normal limits. IMPRESSION: No acute cardiopulmonary process identified.
[2024-08-14] MEDS: D5W-1/2 NS/20MEQ KCL 1,000 ML IV SCH (18:10)
[2024-08-14 19:08] LABS: CREATININE 1.2 mg/dL (0.5-1.3); POTASSIUM 3.2 mmol/L (3.5-5.1)
[2024-08-14] MEDS: FAMOTIDINE 20MG VIAL IV SCH (21:18)
[2024-08-14] MEDS: INSULIN GLARgine 100 UNITS/ML 10 ML VIAL SQ SCH (21:19)
[2024-08-14 23:12] LABS: CREATININE 1.1 mg/dL (0.5-1.3)
[2024-08-14 23:13] LABS: POTASSIUM 2.8 mmol/L (3.5-5.1)
[2024-08-14] MEDS: PoTASSium chloRIDE 20MEQ/100ML 100 ML IV PRN (23:27)
[2024-08-15] VITALS (75 sets, daily range): BP systolic 75–146; BP diastolic 32–87; PULSE 70–131; RESP 11–71; TEMP 97.6–98.9; O2SAT 99–100
[2024-08-15 04:32] LABS: CREATININE 1.2 mg/dL (0.5-1.3); POTASSIUM 3.2 mmol/L (3.5-5.1)
[2024-08-15 05:34] LABS: BASOPHILS # (AUTO) 0.02 K/uL (0.00-0.20); BASOPHILS % (AUTO) 0.3 % (0.0-5.0); EOSINOPHILS # (AUTO) 0.17 K/uL (0.00-0.70); EOSINOPHILS % (AUTO) 2.8 % (0.0-8.0); HEMATOCRIT 36.7 % (42-54); IMMATURE GRANULOCYTE ABSOLUTE 0.03 K/uL (0-1); LYMPHOCYTES # (AUTO) 1.4 K/uL (1.0-4.8); LYMPHOCYTES % (AUTO) 23.3 % (21.0-51.0); MEAN CORPUSCULAR HEMOGLOBIN 28.4 pg (27.0-33.0); MEAN CORPUSCULAR VOLUME 86.2 fL (79-99); MONOCYTES # (AUTO) 0.8 K/uL (0.1-1.0); MONOCYTES % (AUTO) 13.4 % (3.0-13.0); NEUTROPHILS # (AUTO) 3.7 K/uL (1.8-7.7); NEUTROPHILS % (AUTO) 59.7 % (40.0-77.0); PLATELET COUNT (AUTO) 216 K/uL (130-400); RED BLOOD CELL COUNT(AUTO) 4.26 MIL/uL (4.50-6.20); RED CELL DISTRIBUTION WIDTH 15.2 % (11.0-15.5); WHITE BLOOD COUNT (AUTO) 6.1 K/uL (4.8-10.8)
[2024-08-15 07:24] LABS: CREATININE 1.1 mg/dL (0.5-1.3); POTASSIUM 3.2 mmol/L (3.5-5.1)
[2024-08-15 08:15] LABS: ABG BASE EXCESS -9.8 mmol/L (-2.0-3.0); ABG HCO3 14.2 mmol/L (21.0-28.0); ABG OXYGEN SATURATION 97.6 % (94.0-98.0); ABG PCO2 27 mmHg (35-48); ABG PH 7.336 (7.350-7.450); DEVICE COMMENT LR MILTON; PO2, ARTERIAL BG 105.7 mmHg (83.0-108.0); VENT MODE, BG RA (ROOM AIR)
--- NOTE | 2024-08-15 08:27 | PN ---
[facility] PROGRESS NOTE Date of Service: Aug 15, 2024 Time of Service: 08:23 SUBJECTIVE: The patient has been seen and examined earlier this morning during my, he is in the ICU, getting IV fluids, potassium IV per protocol, as well as insulin drip. Currently he remains hemodynamically stable, BP 111/71, afebrile, saturating normal on room air. He is alert and oriented x3, denies dizziness, no headache, no chest pain, shortness shortness for breath, no nausea, no vomiting, no abdominal discomfort, no diarrhea, no constipation. No hematuria, no dysuria. No family members at bedside. REVIEW OF SYSTEMS CONSTITUTIONAL: Denies fevers, chills, or night sweats. No unintentional weight loss reported. NEUROLOGICAL: Denies headache, amaurosis fugax, motor weakness, sensory deficit, vertigo/spinning sensation, gait abnormalities, or tremors. ENT: No hearing loss, otalgia, otorrhea, rhinitis, rhinorrhea, hoarseness, or sore throat. CARDIOVASCULAR: Denies any exertional angina, dyspnea on exertion, orthopnea, paroxysmal nocturnal dyspnea, palpitations, life-threatening arrhythmias, claudication. PULMONARY: Denies any shortness of breath, cough, phlegm/sputum, hemoptysis, pleuritic chest pain. SLEEP: Denies morning headaches, daytime somnolence or napping. Denies difficulty falling asleep, staying asleep, waking from sleep. Denies knowledge of snoring. GASTROINTESTINAL: Positive for nausea, vomiting. Denied any abdominal pain, constipation, diarrhea, melena, hematochezia, hematemesis GENITOURINARY: Denies frequency, urgency, nocturia, hematuria or incontinence (Storage/Irritative symptoms.) Low urinary stream, straining to void, urinary intermittency or hesitancy, splitting of the voiding stream, terminal dribbling. ENDOCRINOLOGIC: Denies polyuria, polydipsia, polyphagia or heat/cold intolerances. HEMATOLOGIC: Denies thrombophilia/previous clots, or coagulopathy/bleeding disorders. ONCOLOGIC: Denies personal history of malignancy. DERMATOLOGIC: Denies rashes or pruritus. PSYCHIATRIC: Denies any suicidal or homicidal ideation. Denies hallucinations. PHYSICAL EXAM GENERAL APPEARANCE: The patient is awake, alert, and oriented, in no acute c ardiopulmonary distress. Patient is obese NEUROLOGICAL: Cranial nerves II-XII grossly intact. Motor is 5/5 in bilateral upper and lower extremities proximal to distal. No sensory deficits. HEENT: Face is symmetric. Pupils are equal and reactive. Extraocular movements are intact. NECK: Supple. No JVD. No thyromegaly. No submental, submandibular, pre- /postauricular, occipital or supraclavicular lymphadenopathy. CHEST: Normal chest expansion. No Telemetry. LUNGS: Absence of any rales, rhonchi or any wheezing. CARDIOVASCULAR: Regular. S1 and S2 normal. No appreciable rubs, murmurs or gallops. ABDOMEN: Soft, nontender, and nondistended. There is no rebound, voluntary guarding, or rigidity. : Deferred. No Moore. EXTREMITIES: Non-edematous and not cyanotic. No clubbing. Good capillary refi ll. SKIN: No skin breakdown. Vital Signs (last 8hr) Date Time Temp Pulse Resp B/P (MAP) Pulse Ox O2 Delivery O2 Flow Rate FiO2 08/15/24 07:45 81 18 100 08/15/24 07:30 72 19 99 08/15/24 07:15 70 18 100 08/15/24 07:00 97.5 75 21 111/71 100 Room Air 08/15/24 06:45 82 25 100 08/15/24 06:00 70 16 98/54 100 Room Air 08/15/24 05:00 71 25 110/57 100 Room Air 08/15/24 04:00 100 Room Air* 0 21 08/15/24 04:00 79 21 118/69 100 Room Air 08/15/24 03:01 72 18 105/53 100 Room Air 08/15/24 02:00 74 15 122/50 100 Room Air 08/15/24 01:01 84 20 111/46 100 Room Air LABS: Laboratory: Test 08/15/24 08:14 08/15/24 07:00 08/15/24 06:20 08/15/24 05:03 Range/Units Blood Gas Specimen Type Arterial Arterial Blood pH 7.336 L 7.350-7.450 Arterial Blood Partial Pressure CO2 27 L 35-48 mmHg Arterial Blood Partial Pressure O2 105.7 83.0-108.0 mmHg Arterial Blood HCO3 14.2 L 21.0-28.0 mmol/L Arterial Blood Oxygen Saturation 97.6 94.0-98.0 % Arterial Blood Base Excess -9.8 L -2.0-3.0 mmol/L Blood Gas Temperature 37.0 35.5-37.0 CELSIUS Blood Gas Vent Mode RA ROOM AIR FiO2 21.0 % Blood Gas Specimen Comment LR XIN Sodium Level 138 136-145 mmol/L Potassium Level 3.2 L 3.5-5.1 mmol/L Chloride Level 108 101-111 mmol/L Carbon Dioxide Level 18 L 21-32 mmol/L Blood Urea Nitrogen 5 L 7-18 mg/dL Creatinine 1.1 0.5-1.3 mg/dL Glomerular Filtration Rate Calc 97 >90 mL/min Random Glucose 150 H 70-105 mg/dL Total Calcium 8.2 L 8.5-10.1 mg/dL Magnesium Level 1.60 L 1.80-2.40 mg/dL Whole Blood Glucose 155 H 70-110 MG/DL White Blood Count 6.1 # 4.8-10.8 K/uL Red Blood Count 4.26 #L 4.50-6.20 MIL/uL Hemoglobin 12.1 #L 14.0-18.0 g/dL Hematocrit 36.7 #L 42-54 % Mean Corpuscular Volume 86.2 79-99 fL Mean Corpuscular Hemoglobin 28.4 27.0-33.0 pg Mean Corpuscular Hemoglobin Concent 33.0 32.0-36.0 g/dL Red Cell Distribution Width 15.2 11.0-15.5 % Platelet Count 216 # 130-400 K/uL Mean Platelet Volume 13.2 H 7.5-10.5 fL Immature Granulocyte % (Auto) 0.5 0-1 % Neutrophils (%) (Auto) 59.7 40.0-77.0 % Lymphocytes (%) (Auto) 23.3 21.0-51.0 % Monocytes (%) (Auto) 13.4 H 3.0-13.0 % Eosinophils (%) (Auto) 2.8 0.0-8.0 % Basophils (%) (Auto) 0.3 0.0-5.0 % Neutrophils # (Auto) 3.7 1.8-7.7 K/uL Lymphocytes # (Auto) 1.4 1.0-4.8 K/uL Monocytes # (Auto) 0.8 0.1-1.0 K/uL Eosinophils # (Auto) 0.17 0.00-0.70 K/uL Basophils # (Auto) 0.02 0.00-0.20 K/uL Absolute Immature Granulocyte (auto 0.03 0-1 K/uL Nucleated Red Blood Cells 0.0 0.0-0.19 % Test 08/15/24 03:47 08/14/24 16:04 08/14/24 14:18 08/14/24 14:09 Range/Units Lipase 125 H 16-77 U/L Bedside Glucose Comment Notified Nurse Hemoglobin (Blood Gas) 15.5 13.5-17.5 g/dL Sodium (Blood Gas) 134 L 136-145 MMOL/L Bedside Potassium (Blood Gas) 3.9 3.4-4.5 MMOL/L Bedside Chloride (Blood Gas) 104 98-107 MMOL/L Bedside Glucose (Blood Gas) 418 H 65-95 MG/DL Bedside Ionized Calcium (Blood Gas) 1.33 1.15-1.33 MMOL/L Bedside Lactic Acid (Blood Gas) 1.72 H 0.36-0.75 MMOL/L Whole Blood Ketones Quantitative 5.2 H 0.0-0.6 mmol/L Test 08/14/24 13:46 08/14/24 13:14 08/14/24 13:11 Range/Units Hemoglobin A1c 11.1 H 4.0-6.0 % Estimated Average Glucose (eAG) 272 H 70-126 mg/dL C-Reactive Protein, Quantitative 10.20 H 0.5-3.0 mg/L Triglycerides Level 300 H 30-200 mg/dL Procalcitonin 0.06 0.05-0.5 ng/mL Thyroid Stimulating Hormone (TSH) 8.73 H 0.36-3.74 uIU/mL White Cell Morphology Comment See comments Total Bilirubin 0.7 0.2-1.0 mg/dL Aspartate Amino Transf (AST/SGOT) 16 10-37 U/L Alanine Aminotransferase (ALT/SGPT) 47 12-78 U/L Alkaline Phosphatase 152 H 50-136 U/L Total Creatine Kinase 153 21-232 U/L Total Protein 9.8 H 6.0-8.3 g/dL Albumin 4.8 3.5-5.0 g/dL Urine Color LIGHT-YELLOW YELLOW Urine Appearance CLOUDY H CLEAR Urine pH 5.5 5.0-8.0 Urine Specific Axson 1.030 1.001-1.031 Urine Protein 100 H NEGATIVE mg/dL Urine Glucose (UA) >=1000 H NEGATIVE mg/dL Urine Ketones 150 H NEGATIVE mg/dL Urine Occult Blood MODERATE H NEGATIVE Urine Nitrate NEGATIVE NEGATIVE Urine Bilirubin NEGATIVE NEGATIVE mg/dL Urine Urobilinogen 0.2 0.2-1.0 mg/dL Urine Leukocyte Esterase 500 H NEGATIVE Jun/uL Urine RBC 11-25 H 0-1 /HPF Urine WBC 26-50 H 0-1 /HPF Urine Squamous Epithelial Cells FEW 0-2 /HPF Urine Bacteria FEW None Seen /HPF Urine Opiates Screen NEGATIVE NEGATIVE Urine Barbiturates Screen NEGATIVE NEGATIVE Urine Phencyclidine Screen NEGATIVE NEGATIVE Urine Amphetamines Screen NEGATIVE NEGATIVE Urine Benzodiazepines Screen NEGATIVE NEGATIVE Urine Cocaine Screen NEGATIVE NEGATIVE Urine Marijuana (THC) Screen POSITIVE H NEGATIVE Current Medications Medications (Trade) Dose Ordered Sig/Rocio Route PRN Reason Start Time Stop Time Status Last Admin Dose Admin Acetaminophen (TYLenol 500MG TAB) 500 mg Q6H PRN PO MILD PAIN (1-3) 08/14/24 15:30 09/13/24 15:29 08/14/24 22:22 500 MG Ceftriaxone Sodium (Rocephin 2gm Inj) 2 gm Q24H IVPB 08/14/24 16:00 08/19/24 15:59 08/14/24 16:10 2 GM Dextrose/Sodium Chloride 1,000 ml @ 0 mls/hr AD IV 08/14/24 15:00 09/13/24 14:59 Enoxaparin Sodium (Lovenox) 30 mg DAILY SQ 08/15/24 09:00 09/14/24 08:59 Famotidine (Pepcid 20mg Vial) 20 mg BID IV 08/14/24 21:00 09/13/24 20:59 08/14/24 21:18 20 MG Insulin Glargine (LANtus 100 UNITS/ML 10 ML VIAL) 20 units BID@0730,2100 SQ 08/14/24 21:00 09/13/24 20:59 08/14/24 21:19 20 UNITS Insulin Human Regular 100 unit/ Sodium Chloride 101 ml @ 0 mls/hr PROTOCOL IV 08/14/24 15:00 09/13/24 14:59 08/15/24 03:52 5.8 MLS/HR Lactated Ringer's (Lactated Ringers 1000ml) 1,000 ml ONCE IV 08/14/24 16:00 08/14/24 23:59 DC 08/14/24 16:10 1,000 ML Magnesium Sulfate 50 ml @ 0 mls/hr PROTOCOL IV 08/14/24 15:00 09/13/24 14:59 Mannitol 292 ml @ 292 mls/hr AD IV 08/14/24 15:30 08/14/24 15:06 DC Mannitol (Osmitrol 20% 250ml Bag) 58 gm AD IV 08/14/24 15:00 08/15/24 15:01 UNV Potassium Chloride 20 meq/ Sodium Chloride 1,010 ml @ 0 mls/hr PROTOCOL IV 08/14/24 15:00 09/13/24 14:59 08/14/24 15:12 150 MLS/HR Potassium Chloride/Dextrose/ Sod Cl 1,000 ml @ 0 mls/hr AD IV 08/14/24 15:00 09/13/24 14:59 08/15/24 01:07 150 MLS/HR Potassium Chloride 100 ml @ 50 mls/hr AD PRN IV POTASSIUM PROTOCOL 08/14/24 23:30 09/13/24 23:29 08/15/24 07:15 50 MLS/HR Sodium Chloride 1,000 ml @ 200 mls/hr PROTOCOL IV 08/14/24 15:00 09/13/24 14:59 08/14/24 15:16 200 MLS/HR DIAGNOSTICS / RADIOLOGY: [ ] ASSESSMENT: Diabetic ketoacidosis POA Metabolic acidosis secondary to DKA Pseudohyponatremia secondary to hyperglycemia Diabetes mellitus type 2 BASHIR Suspected UTI Leukocytosis Dehydration History of alcohol use History of marijuana use History of smoking PLAN: - patient remains admitted to the ICU -continue the patient on insulin drip -critical care consultation requested, follow input and recommendation -continue to replace electrolytes IV per protocol -endocrinology consultation requested, follow input and recommendation -repeat ABG today -continue empiric antibiotics, follow results of septic workup, procalcitonin elevated -GI and DVT prophylaxis Plan of action discussed, all questions answered, agreed and understood the information provided. Total ICU time spent greater than 30 minutes. ANAID GUTIERREZ MD Aug 15, 2024 08:27
[2024-08-15] MEDS: ENOXAPARIN SODIUM 30 MG/0.3 ML SQ SCH (08:29)
[2024-08-15] MEDS: MAGNESIUM 2GM PREMIX 50ML 50 ML IV SCH (08:30)
--- NOTE | 2024-08-15 08:52 | PN ---
[facility] PROGRESS NOTE Date Patient Seen: Aug 15, 2024 Time of Visit: 08:49 Supervising Physician: Dr. Rhodes Primary Care Physician: No PCP- Outpatient Specialists: [facility] Inpatient Consults: Dr. Joel PROBLEM LIST: Diabetic ketoacidosis- never been diagnosed with diabetes before- diet high in calories: Coke, alcohol Sepsis Acute renal failure 2/2 ATN from sepsis/ dehydration Acute cystitis Substance abuse: marijuana, alcohol Pseudohyponatremia secondary to hyperglycemia Penile excoriation Acute pancreatitis Hypertension Morbid obesity BMI of 42 INTERVAL HISTORY: 08/15 patient is awake alert and oriented x3, not in acute distress. His chemistry this morning with gap of 12 and bicarb of 18. Potassium is 3.2. Magnesium is 1.6. We will go ahead and cover electrolyte replacement protocol. We will give patient 1 L of LR and resume insulin drip until bicarb is greater than 18. Continue with the Lantus b.i.d.. Patient with lipase down to 125 from 160, triglycerides 300. We will start patient on fenofibrate and fish oil and check lipid panel. Start him on anti lipid. Otherwise his renal function has improved. If able to come off of insulin drip, we can downgrade him to medical surgical. And if so, pulmonary/ critical care will be assisting as needed. REVIEW OF SYSTEMS: General: No Fever, No Chills, No Night Sweats, No Fatigue, No Malaise, No Appetite HEENT: No Head Aches, No Visual Changes, No Eye Pain, No Ear Pain, No Dysphasia, No Sinus Congestion, No Post Nasal Drip, No Sore Throat Pulmonary: No Dyspnea; No Cough, No Pleuritic Chest Pain Cardiovascular: No: Chest Pain, Palpitations, Orthopnea, Paroxysmal Noc. Dyspnea, Edema, Lt Headedness Gastrointestinal: No: Nausea, Vomiting, Abdominal Pain, Diarrhea, Constipation, Melena, Hematochezia Genitourinary: yes Dysuria, No Frequency, No Incontinence, No Hematuria, No Retention Musculoskeletal: No: other, neck pain, shoulder pain, arm pain, back pain, hand pain, leg pain, foot pain Skin: No Urticaria, No Rash Neurological: No: Weakness, Numbness, Incoordination, Change in speech, Confusion, Seizures PHYSICAL EXAM: GENERAL: alert, weak, awake oriented x 3. Obese HEENT: EOMI, Sclera non icteric, moist mucosa NECK: Supple, no JVD, trachea midline LUNGS: Clear breath sounds bilaterally. No wheezes HEART: Regular rate and rhythm. Normal S1 and S2, without murmurs ABD: Abdomen soft, nontender. Bowel sounds present : Excoriation to penile meatus, uncircumcised EXT: No clubbing cyanosis or edema NEURO: Alert and oriented to person, follows commands Vital Signs (last 8hr) Date Time Temp Pulse Resp B/P (MAP) Pulse Ox O2 Delivery O2 Flow Rate FiO2 08/15/24 07:45 81 18 100 08/15/24 07:30 72 19 99 08/15/24 07:15 70 18 100 08/15/24 07:00 97.5 75 21 111/71 100 Room Air 08/15/24 06:45 82 25 100 08/15/24 06:00 70 16 98/54 100 Room Air 08/15/24 05:00 71 25 110/57 100 Room Air 08/15/24 04:00 100 Room Air* 0 21 08/15/24 04:00 79 21 118/69 100 Room Air 08/15/24 03:01 72 18 105/53 100 Room Air 08/15/24 02:00 74 15 122/50 100 Room Air 08/15/24 01:01 84 20 111/46 100 Room Air LABS: Hematology Labs: Test 08/15/24 05:03 08/14/24 13:14 Range/Units White Blood Count 6.1 # 4.8-10.8 K/uL Red Blood Count 4.26 #L 4.50-6.20 MIL/uL Hemoglobin 12.1 #L 14.0-18.0 g/dL Hematocrit 36.7 #L 42-54 % Mean Corpuscular Volume 86.2 79-99 fL Mean Corpuscular Hemoglobin 28.4 27.0-33.0 pg Mean Corpuscular Hemoglobin Concent 33.0 32.0-36.0 g/dL Red Cell Distribution Width 15.2 11.0-15.5 % Platelet Count 216 # 130-400 K/uL Mean Platelet Volume 13.2 H 7.5-10.5 fL Immature Granulocyte % (Auto) 0.5 0-1 % Neutrophils (%) (Auto) 59.7 40.0-77.0 % Lymphocytes (%) (Auto) 23.3 21.0-51.0 % Monocytes (%) (Auto) 13.4 H 3.0-13.0 % Eosinophils (%) (Auto) 2.8 0.0-8.0 % Basophils (%) (Auto) 0.3 0.0-5.0 % Neutrophils # (Auto) 3.7 1.8-7.7 K/uL Lymphocytes # (Auto) 1.4 1.0-4.8 K/uL Monocytes # (Auto) 0.8 0.1-1.0 K/uL Eosinophils # (Auto) 0.17 0.00-0.70 K/uL Basophils # (Auto) 0.02 0.00-0.20 K/uL Absolute Immature Granulocyte (auto 0.03 0-1 K/uL Nucleated Red Blood Cells 0.0 0.0-0.19 % White Cell Morphology Comment See comments Chemistry Labs: Test 08/15/24 08:14 08/15/24 07:00 08/15/24 03:47 08/14/24 16:04 Range/Units Whole Blood Glucose 94 70-110 MG/DL Sodium Level 138 136-145 mmol/L Potassium Level 3.2 L 3.5-5.1 mmol/L Chloride Level 108 101-111 mmol/L Carbon Dioxide Level 18 L 21-32 mmol/L Blood Urea Nitrogen 5 L 7-18 mg/dL Creatinine 1.1 0.5-1.3 mg/dL Glomerular Filtration Rate Calc 97 >90 mL/min Random Glucose 150 H 70-105 mg/dL Total Calcium 8.2 L 8.5-10.1 mg/dL Magnesium Level 1.60 L 1.80-2.40 mg/dL Lipase 125 H 16-77 U/L Bedside Glucose Comment Notified Nurse Test 08/14/24 14:09 08/14/24 13:46 08/14/24 13:14 Range/Units Whole Blood Ketones Quantitative 5.2 H 0.0-0.6 mmol/L Hemoglobin A1c 11.1 H 4.0-6.0 % Estimated Average Glucose (eAG) 272 H 70-126 mg/dL C-Reactive Protein, Quantitative 10.20 H 0.5-3.0 mg/L Triglycerides Level 300 H 30-200 mg/dL Procalcitonin 0.06 0.05-0.5 ng/mL Thyroid Stimulating Hormone (TSH) 8.73 H 0.36-3.74 uIU/mL Total Bilirubin 0.7 0.2-1.0 mg/dL Aspartate Amino Transf (AST/SGOT) 16 10-37 U/L Alanine Aminotransferase (ALT/SGPT) 47 12-78 U/L Alkaline Phosphatase 152 H 50-136 U/L Total Creatine Kinase 153 21-232 U/L Total Protein 9.8 H 6.0-8.3 g/dL Albumin 4.8 3.5-5.0 g/dL DIAGNOSTICS / RADIOLOGY RESULTS: [ ] PLAN NEURO: Minimize central acting medications as possible. Fall Precautions. Well lighted room through the day and minimize interruptions through the night to prevent acute delirium. PULMONARY: Supplemental 02 as needed Titrate Fio2 to keep Spo2 > or = 90% DuoNebs and CPT as needed IS hourly while awake for pulmonary hygiene Out of bed to chair as tolerated Obtain Chest xray CARDIOVASCULAR: Follow hemodynamics. Titrate vasopressor to keep MAP >65 or systolic blood pressure >95mmHg DRIPS: Insulin LINES: PIV GI & NUTRITION: Continue nutritional support Aspirations precautions Prokinetic agents and laxatives as needed KIDNEYS & ELECTROLYTES: Strict monitoring of intake and output Daily weights Avoid nephrotoxic agents Monitor electrolytes and replace as needed Goal urine output of 30mL/hr or 0.5mL/kg/hr ENDOCRINE: Maintain blood glucose between 100-180 at all times. Insulin sliding scale for blood glucose management ISS Start long acting Check triglyceride Lipase trend INFECTIOUS DISEASE: Trend temperature. Fitzgerald-culture if febrile. Micro: Urine Blood Check for chlamydia and gonorrhea Antibiotics: Rocephin HEMATOLOGY & COAGULATION: Monitor H&H. Keep Hgb > 7 Transfuse 1 unit of PRBC for Hgb < 7 Transfuse 1 pack of platelets of platelets < 20, 000 Watch for any signs and symptoms of bleeding SKIN: Pressure ulcer prevention per facility protocol Rehab: PT/OT Prophylaxis: GI: Pepcid DVT: Lovenox Code Status: Full Resuscitation Disposition: ICU Other: Total patient care time exceeds 35 minutes excluding all procedures. Energy Sales Consultant for diabetic education Counseled for smoking, alcohol, and Marijuana cessation Embrace healthier life style Case was discussed and seen with my supervising physician. The above plan was formulated and agreed upon. KRISTEN SHEPPARD [facility] Aug 15, 2024 08:52
[2024-08-15] MEDS: LACTATED RINGERS 1000ML IV ONE ×3 (09:02→15:44)
[2024-08-15] MEDS: FENOFIBRATE NANOCRYSTALLIZED 145 MG TAB PO SCH (09:03)
[2024-08-15] MEDS: PoTASSium chl 10% ELIXIR 20MEQ 20 MEQ/15 ML UDCUP PO PRN (09:09)
[2024-08-15 09:33] LABS: CHOLESTEROL 242 mg/dL (<200); HDL CHOLESTEROL 41 mg/dL (29-71); LDL DIRECT 170 mg/dL (0-99); TRIGLYCERIDES 157 mg/dL (30-200)
[2024-08-15 11:09] LABS: CHOLESTEROL 224 mg/dL (<200); HDL CHOLESTEROL 37 mg/dL (29-71); LDL DIRECT 156 mg/dL (0-99); TRIGLYCERIDES 159 mg/dL (30-200)
[2024-08-15 11:18] LABS: CREATININE 0.5 mg/dL (0.5-1.3); POTASSIUM 3.1 mmol/L (3.5-5.1)
--- NOTE | 2024-08-15 16:40 | CONS ---
CONSULT NOTE: endocrinology consult Date of Service: Aug 15, 2024 HISTORY OF PRESENT ILLNESS: A 24-year-old male with no significant past medical history who presented to the hospital secondary to nausea, vomiting. The patient states his symptoms began around 3 days ago which was associated with nausea and episodes of vomiting. He is currently does not take any medications at home. He states his grandmother has history of diabetes. He denied any previous hospitalizations. He also noted increasing thirst with very frequent urination. Denied any previous history of DKA or needing any hospitalizations for DKA in the past. Denied any cough, shortness of breath, arthralgia, myalgia. Labs in the ED were notable for white count of 13.0, hemoglobin was 16.7, platelet count was 370k, sodium was 132, potassium was 3.6, blood glucose was 439, alk-phos was mildly elevated, total protein was 9.8, lipase was 165, blood ketones was 5.2. Blood gas was notable for pH of 7.19/16/107.2/6.0 Newly diagnosed with DM-2 and hba1c was 11.1%. denies any history of dm-2, leticia noguera is currently on insulin drip and glargine 20 units bid. still NPO. bicarb was improving but now low again to 12. REVIEW OF SYSTEMS CONSTITUTIONAL: Denies fevers, chills, or night sweats. No unintentional weight loss reported. NEUROLOGICAL: Denies headache, amaurosis fugax, motor weakness, sensory deficit, vertigo/spinning sensation, gait abnormalities, or tremors. ENT: No hearing loss, otalgia, otorrhea, rhinitis, rhinorrhea, hoarseness, or sore throat. CARDIOVASCULAR: Denies any exertional angina, dyspnea on exertion, orthopnea, paroxysmal nocturnal dyspnea, palpitations, life-threatening arrhythmias, claudication. PULMONARY: Denies any shortness of breath, cough, phlegm/sputum, hemoptysis, pleuritic chest pain. SLEEP: Denies morning headaches, daytime somnolence or napping. Denies difficulty falling asleep, staying asleep, waking from sleep. Denies knowledge of snoring. GASTROINTESTINAL: Positive for nausea, vomiting but improving. GENITOURINARY: Denies frequency, urgency, nocturia, hematuria or incontinence (Storage/Irritative symptoms.) Low urinary stream, straining to void, urinary intermittency or hesitancy, splitting of the voiding stream, terminal dribbling. ENDOCRINOLOGIC: Denies polyuria, polydipsia, polyphagia or heat/cold intolerances. HEMATOLOGIC: Denies thrombophilia/previous clots, or coagulopathy/bleeding disorders. ONCOLOGIC: Denies personal history of malignancy. DERMATOLOGIC: Denies rashes or pruritus. PSYCHIATRIC: Denies any suicidal or homicidal ideation. Denies hallucinations. PAST MEDICAL HISTORY: No significant past medical history PAST SURGICAL HISTORY: Denied any previous surgical history PAST SOCIAL HISTORY: He smokes around 1-2 cigarettes per week. He drinks six pack every weekend for three years. Also uses marijuana. Denied any other drug use FAMILY HISTORY: History of diabetes in grandmother Coded Allergies: No Known Drug Allergies (Unverified Allergy, Unknown, 08/14/24) PHYSICAL EXAM GENERAL APPEARANCE: The patient is awake, alert, and oriented, in no acute cardiopulmonary distress. Patient is obese NEUROLOGICAL: Cranial nerves II-XII grossly intact. Motor is 5/5 in bilateral upper and lower extremities proximal to distal. No sensory deficits. HEENT: Face is symmetric. Pupils are equal and reactive. Extraocular movements are intact. NECK: Supple. No JVD. No thyromegaly. No submental, submandibular, pre- /postauricular, occipital or supraclavicular lymphadenopathy. CHEST: Normal chest expansion. No Telemetry. LUNGS: Absence of any rales, rhonchi or any wheezing. CARDIOVASCULAR: Regular. S1 and S2 normal. No appreciable rubs, murmurs or gallops. ABDOMEN: Soft, nontender, and nondistended. There is no rebound, voluntary guarding, or rigidity. : Deferred. No Moore. EXTREMITIES: Non-edematous and not cyanotic. No clubbing. Good capillary refill. SKIN: No skin breakdown. ASSESSMENT: Diabetic ketoacidosis POA Newly diagnosed with DM-2 and hba1c was 11.1%. denies any history of dm-2, patient is currently on insulin drip and glargine 20 units bid. still NPO. bicarb was improving but now low again to 12. starvation ketosis also contributes to low bicarb. denies abdominal pain. less likely pancreatitis. newly Diabetes mellitus type 2 Metabolic acidosis secondary to DKA Pseudohyponatremia secondary to hyperglycemia BASHIR - improving Suspected UTI Leukocytosis Dehydration - improved History of alcohol use History of marijuana use History of smoking PLAN: hold lantus due to hypoglycemia and will restart tomorrow, once dka resolved. continue insulin drip and gradually titrate per dka protocol monitor glucose qx6 hourly. monitor BMP qx6 hourly. patient will need novolin 70/30 insulin 20 units AM, 10 units PM, metformin 500 mg bid and glimepiride 2 mg daily at discharge. Vital Signs 08/15/24 08/15/24 08/15/24 08:00 12:00 12:20 Temp 97.9 Pulse 78 Resp 28 B/P (MAP) 134/79 Pulse Ox 100 O2 Delivery Room Air O2 Flow Rate 0 FiO2 21 Vital Signs 08/15/24 08/15/24 08/15/24 08:00 12:00 12:20 Temp 97.9 Pulse 78 Resp 28 B/P (MAP) 134/79 Pulse Ox 100 O2 Delivery Room Air O2 Flow Rate 0 FiO2 21 Hematology Labs: Test 08/15/24 05:03 08/14/24 13:14 Range/Units White Blood Count 6.1 # 4.8-10.8 K/uL Red Blood Count 4.26 #L 4.50-6.20 MIL/uL Hemoglobin 12.1 #L 14.0-18.0 g/dL Hematocrit 36.7 #L 42-54 % Mean Corpuscular Volume 86.2 79-99 fL Mean Corpuscular Hemoglobin 28.4 27.0-33.0 pg Mean Corpuscular Hemoglobin Concent 33.0 32.0-36.0 g/dL Red Cell Distribution Width 15.2 11.0-15.5 % Platelet Count 216 # 130-400 K/uL Mean Platelet Volume 13.2 H 7.5-10.5 fL Immature Granulocyte % (Auto) 0.5 0-1 % Neutrophils (%) (Auto) 59.7 40.0-77.0 % Lymphocytes (%) (Auto) 23.3 21.0-51.0 % Monocytes (%) (Auto) 13.4 H 3.0-13.0 % Eosinophils (%) (Auto) 2.8 0.0-8.0 % Basophils (%) (Auto) 0.3 0.0-5.0 % Neutrophils # (Auto) 3.7 1.8-7.7 K/uL Lymphocytes # (Auto) 1.4 1.0-4.8 K/uL Monocytes # (Auto) 0.8 0.1-1.0 K/uL Eosinophils # (Auto) 0.17 0.00-0.70 K/uL Basophils # (Auto) 0.02 0.00-0.20 K/uL Absolute Immature Granulocyte (auto 0.03 0-1 K/uL Nucleated Red Blood Cells 0.0 0.0-0.19 % White Cell Morphology Comment See comments Chemistry Labs: Test 08/15/24 15:36 08/15/24 10:48 08/15/24 09:02 08/15/24 07:00 Range/Units Whole Blood Glucose 199 H 70-110 MG/DL Sodium Level 134 L 136-145 mmol/L Potassium Level 3.1 L 3.5-5.1 mmol/L Chloride Level 105 101-111 mmol/L Carbon Dioxide Level 12 L 21-32 mmol/L Blood Urea Nitrogen 2 L 7-18 mg/dL Creatinine 0.5 0.5-1.3 mg/dL Glomerular Filtration Rate Calc 147 >90 mL/min Random Glucose 32 #*L 70-105 mg/dL Total Calcium 7.1 L 8.5-10.1 mg/dL Triglycerides Level 157 30-200 mg/dL Cholesterol Level 242 H <200 mg/dL LDL Cholesterol 170 H 0-99 mg/dL HDL Cholesterol 41 29-71 mg/dL Magnesium Level 1.60 L 1.80-2.40 mg/dL Vitamin B12 Level 470 193-986 pg/mL Vitamin D 25-Hydroxy 10.5 30.0-100.0 ng/mL Test 08/15/24 03:47 08/14/24 16:04 08/14/24 14:09 08/14/24 13:46 Range/Units Lipase 125 H 16-77 U/L Bedside Glucose Comment Notified Nurse Whole Blood Ketones Quantitative 5.2 H 0.0-0.6 mmol/L Hemoglobin A1c 11.1 H 4.0-6.0 % Estimated Average Glucose (eAG) 272 H 70-126 mg/dL C-Reactive Protein, Quantitative 10.20 H 0.5-3.0 mg/L Procalcitonin 0.06 0.05-0.5 ng/mL Thyroid Stimulating Hormone (TSH) 8.73 H 0.36-3.74 uIU/mL Test 08/14/24 13:14 Range/Units Total Bilirubin 0.7 0.2-1.0 mg/dL Aspartate Amino Transf (AST/SGOT) 16 10-37 U/L Alanine Aminotransferase (ALT/SGPT) 47 12-78 U/L Alkaline Phosphatase 152 H 50-136 U/L Total Creatine Kinase 153 21-232 U/L Total Protein 9.8 H 6.0-8.3 g/dL Albumin 4.8 3.5-5.0 g/dL Current Medications Medications (Trade) Dose Ordered Sig/Rocio Route Start Time Stop Time Status Last Admin Dose Admin Atorvastatin Calcium (LIPItor 20MG) 20 mg HS PO 08/15/24 21:00 09/14/24 20:59 Ceftriaxone Sodium (Rocephin 2gm Inj) 2 gm Q24H IVPB 08/14/24 16:00 08/19/24 15:59 08/15/24 15:43 2 GM Dextrose/Sodium Chloride 1,000 ml @ 0 mls/hr AD IV 08/14/24 15:00 09/13/24 14:59 Enoxaparin Sodium (Lovenox) 30 mg DAILY SQ 08/15/24 09:00 09/14/24 08:59 08/15/24 08:29 30 MG Famotidine (Pepcid 20mg Vial) 20 mg BID IV 08/14/24 21:00 09/13/24 20:59 08/15/24 08:29 20 MG Fenofibrate (Tricor) 145 mg DAILY PO 08/15/24 09:00 09/14/24 08:59 08/15/24 09:03 145 MG Insulin Glargine (LANtus 100 UNITS/ML 10 ML VIAL) 20 units BID@0730,2100 SQ 08/14/24 21:00 09/13/24 20:59 08/15/24 08:33 20 UNITS Insulin Human Regular 100 unit/ Sodium Chloride 101 ml @ 0 mls/hr PROTOCOL IV 08/14/24 15:00 09/13/24 14:59 08/15/24 13:09 0 MLS/HR Lactated Ringer's (Lactated Ringers 1000ml) 1,000 ml ONCE IV 08/14/24 16:00 08/14/24 23:59 DC 08/14/24 16:10 1,000 ML Magnesium Sulfate 50 ml @ 0 mls/hr PROTOCOL IV 08/14/24 15:00 09/13/24 14:59 08/15/24 08:30 25 MLS/HR Mannitol 292 ml @ 292 mls/hr AD IV 08/14/24 15:30 08/14/24 15:06 DC Mannitol (Osmitrol 20% 250ml Bag) 58 gm AD IV 08/14/24 15:00 08/15/24 15:01 UNV Potassium Chloride 20 meq/ Sodium Chloride 1,010 ml @ 0 mls/hr PROTOCOL IV 08/14/24 15:00 09/13/24 14:59 08/14/24 15:12 150 MLS/HR Potassium Chloride/Dextrose/ Sod Cl 1,000 ml @ 0 mls/hr AD IV 08/14/24 15:00 09/13/24 14:59 08/15/24 15:44 150 MLS/HR Sodium Chloride 1,000 ml @ 200 mls/hr PROTOCOL IV 08/14/24 15:00 09/13/24 14:59 08/14/24 15:16 200 MLS/HR TORRES MCCORMACK MD Aug 15, 2024 16:40
[2024-08-15] MEDS: atorVAStatin 20 MG TABLET PO SCH (19:52)
[2024-08-15] MEDS: PoTASSium chloRIDE 20MEQ ER 20 MEQ ERTAB PO PRN (19:53)
[2024-08-16] VITALS (17 sets, daily range): BP systolic 103–147; BP diastolic 46–87; PULSE 69–92; RESP 17–26; TEMP 97.8–99.4; O2SAT 97–100
[2024-08-16 01:50] LABS: POTASSIUM 2.5 mmol/L (3.5-5.1)
[2024-08-16] MEDS: PoTASSium chloRIDE 20MEQ/100ML 100 ML IV PRN (03:58)
[2024-08-16 05:46] LABS: BASOPHILS # (AUTO) 0.03 K/uL (0.00-0.20); BASOPHILS % (AUTO) 0.5 % (0.0-5.0); EOSINOPHILS # (AUTO) 0.15 K/uL (0.00-0.70); EOSINOPHILS % (AUTO) 2.5 % (0.0-8.0); HEMATOCRIT 36.2 % (42-54); IMMATURE GRANULOCYTE ABSOLUTE 0.01 K/uL (0-1); LYMPHOCYTES # (AUTO) 2.1 K/uL (1.0-4.8); LYMPHOCYTES % (AUTO) 34.3 % (21.0-51.0); MEAN CORPUSCULAR HEMOGLOBIN 28.4 pg (27.0-33.0); MEAN CORPUSCULAR HGB CONC 33.4 g/dL (32.0-36.0); MONOCYTES # (AUTO) 0.6 K/uL (0.1-1.0); MONOCYTES % (AUTO) 10.1 % (3.0-13.0); NEUTROPHILS # (AUTO) 3.2 K/uL (1.8-7.7); NEUTROPHILS % (AUTO) 52.4 % (40.0-77.0); PLATELET COUNT (AUTO) 192 K/uL (130-400); RED BLOOD CELL COUNT(AUTO) 4.26 MIL/uL (4.50-6.20); RED CELL DISTRIBUTION WIDTH 15.5 % (11.0-15.5); WHITE BLOOD COUNT (AUTO) 6.1 K/uL (4.8-10.8)
[2024-08-16 06:08] LABS: CREATININE 0.9 mg/dL (0.5-1.3); MAGNESIUM 1.8 mg/dL (1.80-2.40)
[2024-08-16 06:10] LABS: POTASSIUM 2.9 mmol/L (3.5-5.1)
--- NOTE | 2024-08-16 07:30 | PN ---
[facility] PROGRESS NOTE Date Patient Seen: Aug 16, 2024 Time of Visit: 07:29 Supervising Physician: Skip Newman MD Primary Care Physician: No PCP- Outpatient Specialists: [facility] Inpatient Consults: Dr. Joel PROBLEM LIST: Diabetic ketoacidosis- never been diagnosed with diabetes before- diet high in calories: Coke, alcohol Sepsis Acute renal failure 2/2 ATN from sepsis/ dehydration Acute cystitis, POA + FOR CHLAMYDIA TRACHOMATIS. Substance abuse: marijuana, alcohol Pseudohyponatremia secondary to hyperglycemia Penile excoriation Acute pancreatitis Hypertension Morbid obesity BMI of 42 INTERVAL HISTORY: 08/15 patient is awake alert and oriented x3, not in acute distress. His chemistry this morning with gap of 12 and bicarb of 18. Potassium is 3.2. Ma gnesium is 1.6. We will go ahead and cover electrolyte replacement protocol. We will give patient 1 L of LR and resume insulin drip until bicarb is greater than 18. Continue with the Lantus b.i.d.. Patient with lipase down to 125 from 160, triglycerides 300. We will start patient on fenofibrate and fish oil and check lipid panel. Start him on anti lipid. Otherwise his renal function has improved. If able to come off of insulin drip, we can downgrade him to medical surgical. And if so, pulmonary/ critical care will be assisting as needed. 08/16-patient is awake alert and oriented x3. In no acute distress. Anion gap has closed x2 chemistries. He is off the insulin drip. Has been started on Lantus and regular insulin sliding scale. Patient is afebrile with a T-max of 99.1 in the last 24 hours, heart rate in the 70s respiratory rate 18 blood pressure 115/63 with O2 sat of 98% on room air. Patient has good urine output and had a bowel movement yesterday. CBC unremarkable similar to yesterday, chemistries sodium 134 potassium is 2.9, replace per protocol and pending repeat check later this morning, chloride 102 carbon dioxide 24 BUN to creatinine 0.9 GFR 123. Lipase trending down 118 today. On microbiology patient is positive for chlamydia Trichomonas in the urine. Added doxycycline 100 mg p.o. b.i.d. x7 days. Spoke to patient regarding the importance of safe sex. Patient verbalized understanding. Otherwise patient may be downgraded to medical- surgical with telemetry. From pulmonary/critical Care standpoint patient is stable at this time. We will sign off. Please reach to us should the need arise. On behalf of [facility] we are thankful for your team to let us participate in the care of this patient. We will be available if assistance in pulmonary critical care needed. REVIEW OF SYSTEMS: General: No Fever, No Chills, No Night Sweats, No Fatigue, No Malaise, No Appetite HEENT: No Head Aches, No Visual Changes, No Eye Pain, No Ear Pain, No Dysphasia, No Sinus Congestion, No Post Nasal Drip, No Sore Throat Pulmonary: No Dyspnea; No Cough, No Pleuritic Chest Pain Cardiovascular: No: Chest Pain, Palpitations, Orthopnea, Paroxysmal Noc. Dyspnea, Edema, Lt Headedness Gastrointestinal: No: Nausea, Vomiting, Abdominal Pain, Diarrhea, Constipation, Melena, Hematochezia Genitourinary: yes Dysuria, No Frequency, No Incontinence, No Hematuria, No Retention Musculoskeletal: No: other, neck pain, shoulder pain, arm pain, back pain, hand pain, leg pain, foot pain Skin: No Urticaria, No Rash Neurological: No: Weakness, Numbness, Incoordination, Change in speech, Confusion, Seizures PHYSICAL EXAM: GENERAL: alert, weak, awake oriented x 3. Obese HEENT: EOMI, Sclera non icteric, moist mucosa NECK: Supple, no JVD, trachea midline LUNGS: Clear breath sounds bilaterally. No wheezes HEART: Regular rate and rhythm. Normal S1 and S2, without murmurs ABD: Abdomen soft, nontender. Bowel sounds present : Excoriation to penile meatus, uncircumcised EXT: No clubbing cyanosis or edema NEURO: Alert and oriented to person, follows commands Vital Signs (last 8hr) Date Time Temp Pulse Resp B/P (MAP) Pulse Ox O2 Delivery O2 Flow Rate FiO2 08/16/24 06:00 70 18 115/63 98 Room Air 08/16/24 05:00 73 19 114/67 100 Room Air 08/16/24 04:01 73 19 103/46 100 Room Air 08/16/24 04:00 100 Room Air* 0 21 08/16/24 04:00 97.9 08/16/24 03:01 78 22 135/63 100 Room Air 08/16/24 02:02 89 26 132/65 100 Room Air 08/16/24 01:01 69 21 126/63 99 Room Air 08/16/24 00:01 83 19 124/57 100 Room Air 08/16/24 00:00 100 Room Air* 0 21 08/16/24 00:00 99.1 LABS: Hematology Labs: Test 08/16/24 05:32 08/14/24 13:14 Range/Units White Blood Count 6.1 4.8-10.8 K/uL Red Blood Count 4.26 L 4.50-6.20 MIL/uL Hemoglobin 12.1 L 14.0-18.0 g/dL Hematocrit 36.2 L 42-54 % Mean Corpuscular Volume 85.0 79-99 fL Mean Corpuscular Hemoglobin 28.4 27.0-33.0 pg Mean Corpuscular Hemoglobin Concent 33.4 32.0-36.0 g/dL Red Cell Distribution Width 15.5 11.0-15.5 % Platelet Count 192 130-400 K/uL Mean Platelet Volume 13.1 H 7.5-10.5 fL Immature Granulocyte % (Auto) 0.2 0-1 % Neutrophils (%) (Auto) 52.4 40.0-77.0 % Lymphocytes (%) (Auto) 34.3 21.0-51.0 % Monocytes (%) (Auto) 10.1 3.0-13.0 % Eosinophils (%) (Auto) 2.5 0.0-8.0 % Basophils (%) (Auto) 0.5 0.0-5.0 % Neutrophils # (Auto) 3.2 1.8-7.7 K/uL Lymphocytes # (Auto) 2.1 1.0-4.8 K/uL Monocytes # (Auto) 0.6 0.1-1.0 K/uL Eosinophils # (Auto) 0.15 0.00-0.70 K/uL Basophils # (Auto) 0.03 0.00-0.20 K/uL Absolute Immature Granulocyte (auto 0.01 0-1 K/uL Nucleated Red Blood Cells 0.0 0.0-0.19 % White Cell Morphology Comment See comments Chemistry Labs: Test 08/16/24 05:32 08/16/24 03:48 08/16/24 01:18 08/15/24 09:02 Range/Units Sodium Level 137 136-145 mmol/L Potassium Level 2.9 *L 3.5-5.1 mmol/L Chloride Level 102 101-111 mmol/L Carbon Dioxide Level 24 21-32 mmol/L Blood Urea Nitrogen 2 L 7-18 mg/dL Creatinine 0.9 0.5-1.3 mg/dL Glomerular Filtration Rate Calc 123 >90 mL/min Random Glucose 178 H 70-105 mg/dL Total Calcium 8.0 L 8.5-10.1 mg/dL Magnesium Level 1.80 1.80-2.40 mg/dL Whole Blood Glucose 170 H 70-110 MG/DL Lipase 118 H 16-77 U/L Triglycerides Level 157 30-200 mg/dL Cholesterol Level 242 H <200 mg/dL LDL Cholesterol 170 H 0-99 mg/dL HDL Cholesterol 41 29-71 mg/dL Test 08/15/24 07:00 08/14/24 16:04 08/14/24 14:09 08/14/24 13:46 Range/Units Vitamin B12 Level 470 193-986 pg/mL Vitamin D 25-Hydroxy 10.5 30.0-100.0 ng/mL Bedside Glucose Comment Notified Nurse Whole Blood Ketones Quantitative 5.2 H 0.0-0.6 mmol/L Hemoglobin A1c 11.1 H 4.0-6.0 % Estimated Average Glucose (eAG) 272 H 70-126 mg/dL C-Reactive Protein, Quantitative 10.20 H 0.5-3.0 mg/L Procalcitonin 0.06 0.05-0.5 ng/mL Thyroid Stimulating Hormone (TSH) 8.73 H 0.36-3.74 uIU/mL Test 08/14/24 13:14 Range/Units Total Bilirubin 0.7 0.2-1.0 mg/dL Aspartate Amino Transf (AST/SGOT) 16 10-37 U/L Alanine Aminotransferase (ALT/SGPT) 47 12-78 U/L Alkaline Phosphatase 152 H 50-136 U/L Total Creatine Kinase 153 21-232 U/L Total Protein 9.8 H 6.0-8.3 g/dL Albumin 4.8 3.5-5.0 g/dL DIAGNOSTICS / RADIOLOGY RESULTS: [ ] PLAN Aggressive weight loss has been recommended to patient and verbalized understanding. Dress Cap Maker for diabetic diet education. Follow director gift recommendation added doxycycline 100 mg p.o. b.i.d. for total of seven days for chlamydia + in the urine LR at 75 mL/hour Monitor electrolytes and replace accordingly, repeat potassium level Continue with Lantus and add regular insulin per sliding scale Monitor for nausea vomiting and for possible reopening of anion gap Educated patient on the importance of safe sex practices. Such as wearing a condom. Patient verbalized understanding. Counseled for smoking, alcohol, and Marijuana cessation Embrace healthier life style NEURO: Minimize central acting medications as possible. Fall Precautions. Well lighted room through the day and minimize interruptions through the night to prevent acute delirium. PULMONARY: Supplemental 02 as needed Titrate Fio2 to keep Spo2 > or = 90% DuoNebs and CPT as needed IS hourly while awake for pulmonary hygiene Out of bed to chair as tolerated Obtain Chest xray CARDIOVASCULAR: Follow hemodynamics. Titrate vasopressor to keep MAP >65 or systolic blood pressure >95mmHg DRIPS: Insulin LINES: PIV GI & NUTRITION: Continue nutritional support Aspirations precautions Prokinetic agents and laxatives as needed KIDNEYS & ELECTROLYTES: Strict monitoring of intake and output Daily weights Avoid nephrotoxic agents Monitor electrolytes and replace as needed Goal urine output of 30mL/hr or 0.5mL/kg/hr ENDOCRINE: Maintain blood glucose between 100-180 at all times. Insulin sliding scale for blood glucose management ISS Start long acting Check triglyceride Lipase trend INFECTIOUS DISEASE: Trend temperature. Fitzgerald-culture if febrile. Micro: Urine positive for chlamydia trachomatis Blood Antibiotics: Rocephin Doxycycline HEMATOLOGY & COAGULATION: Monitor H&H. Keep Hgb > 7 Transfuse 1 unit of PRBC for Hgb < 7 Transfuse 1 pack of platelets of platelets < 20, 000 Watch for any signs and symptoms of bleeding SKIN: Pressure ulcer prevention per facility protocol Rehab: PT/OT Prophylaxis: GI: Pepcid DVT: Lovenox Code Status: Full Resuscitation Disposition: medsur with tele pack. Other: Total patient care time exceeds 35 minutes excluding all procedures. Case was discussed and seen with my supervising physician. The above plan was formulated and agreed upon. CHRIS SAUCEDO Aug 16, 2024 07:30
[2024-08-16] MEDS: DOXYCYCLINE HYCLATE 100 MG TABLET PO SCH (08:03)
[2024-08-16] MEDS: LACTATED RINGERS 1000ML 1,000 ML IV SCH (08:04)
[2024-08-16] MEDS: INSULIN humuLIN R 100 UNIT/ML 3ML SQ SCH (08:08)
--- NOTE | 2024-08-16 12:20 | PN ---
[facility] PROGRESS NOTE Date of Service: Aug 16, 2024 Time of Service: 12:15 SUBJECTIVE: The patient has been seen and examined earlier this morning during my, he is in the ICU, getting IV fluids, potassium IV per protocol, as well as insulin drip. Currently he remains hemodynamically stable, BP 111/71, afebrile, saturating normal on room air. He is alert and oriented x3, denies dizziness, no headache, no chest pain, shortness shortness for breath, no nausea, no vomiting, no abdominal discomfort, no diarrhea, no constipation. No hematuria, no dysuria. No family members at bedside. 08/16 the patient has been seen and examined today during my rounding, no acute events overnight, he is off insulin drip, tolerating diet. Alert and oriented x3, BP 136/87, afebrile, saturating normal on room air, denied chest pain, no shortness a breath, no nausea, no vomiting. REVIEW OF SYSTEMS CONSTITUTIONAL: Denies fevers, chills, or night sweats. No unintentional weight loss reported. NEUROLOGICAL: Denies headache, amaurosis fugax, motor weakness, sensory deficit, vertigo/spinning sensation, gait abnormalities, or tremors. ENT: No hearing loss, otalgia, otorrhea, rhinitis, rhinorrhea, hoarseness, or sore throat. CARDIOVASCULAR: Denies any exertional angina, dyspnea on exertion, orthopnea, paroxysmal nocturnal dyspnea, palpitations, life-threatening arrhythmias, claudication. PULMONARY: Denies any shortness of breath, cough, phlegm/sputum, hemoptysis, pleuritic chest pain. SLEEP: Denies morning headaches, daytime somnolence or napping. Denies difficulty falling asleep, staying asleep, waking from sleep. Denies knowledge of snoring. GASTROINTESTINAL: Positive for nausea, vomiting. Denied any abdominal pain, constipation, diarrhea, melena, hematochezia, hematemesis GENITOURINARY: Denies frequency, urgency, nocturia, hematuria or incontinence (Storage/Irritative symptoms.) Low urinary stream, straining to void, urinary intermittency or hesitancy, splitting of the voiding stream, terminal dribbling. ENDOCRINOLOGIC: Denies polyuria, polydipsia, polyphagia or heat/cold intolerances. HEMATOLOGIC: Denies thrombophilia/previous clots, or coagulopathy/bleeding disorders. ONCOLOGIC: Denies personal history of malignancy. DERMATOLOGIC: Denies rashes or pruritus. PSYCHIATRIC: Denies any suicidal or homicidal ideation. Denies hallucinations. PHYSICAL EXAM GENERAL APPEARANCE: The patient is awake, alert, and oriented, in no acute cardiopulmonary distress. Patient is obese NEUROLOGICAL: Cranial nerves II-XII grossly intact. Motor is 5/5 in bilateral upper and lower extremities proximal to distal. No sensory deficits. HEENT: Face is symmetric. Pupils are equal and reactive. Extraocular movements are intact. NECK: Supple. No JVD. No thyromegaly. No submental, submandibular, pre-/postauricular, occipital or supraclavicular lymphadenopathy. CHEST: Normal chest expansion. No Telemetry. LUNGS: Absence of any rales, rhonchi or any wheezing. CARDIOVASCULAR: Regular. S1 and S2 normal. No appreciable rubs, murmurs or gallops. ABDOMEN: Soft, nontender, and nondistended. There is no rebound, voluntary guarding, or rigidity. : Deferred. No Moore. EXTREMITIES: Non-edematous and not cyanotic. No clubbing. Good capillary refill. SKIN: No skin breakdown. Vital Signs (last 8hr) Date Time Temp Pulse Resp B/P (MAP) Pulse Ox O2 Delivery O2 Flow Rate FiO2 08/16/24 08:00 98 Room Air* 0 21 08/16/24 08:00 98.8 83 17 136/87 99 Room Air 08/16/24 07:00 69 17 112/69 100 Room Air 08/16/24 06:00 70 18 115/63 98 Room Air 08/16/24 05:00 73 19 114/67 100 Room Air LABS: Laboratory: Test 08/16/24 11:16 08/16/24 10:42 08/16/24 05:32 08/16/24 01:18 Range/Units Whole Blood Glucose 296 H 70-110 MG/DL Potassium Level 3.2 L 3.5-5.1 mmol/L White Blood Count 6.1 4.8-10.8 K/uL Red Blood Count 4.26 L 4.50-6.20 MIL/uL Hemoglobin 12.1 L 14.0-18.0 g/dL Hematocrit 36.2 L 42-54 % Mean Corpuscular Volume 85.0 79-99 fL Mean Corpuscular Hemoglobin 28.4 27.0-33.0 pg Mean Corpuscular Hemoglobin Concent 33.4 32.0-36.0 g/dL Red Cell Distribution Width 15.5 11.0-15.5 % Platelet Count 192 130-400 K/uL Mean Platelet Volume 13.1 H 7.5-10.5 fL Immature Granulocyte % (Auto) 0.2 0-1 % Neutrophils (%) (Auto) 52.4 40.0-77.0 % Lymphocytes (%) (Auto) 34.3 21.0-51.0 % Monocytes (%) (Auto) 10.1 3.0-13.0 % Eosinophils (%) (Auto) 2.5 0.0-8.0 % Basophils (%) (Auto) 0.5 0.0-5.0 % Neutrophils # (Auto) 3.2 1.8-7.7 K/uL Lymphocytes # (Auto) 2.1 1.0-4.8 K/uL Monocytes # (Auto) 0.6 0.1-1.0 K/uL Eosinophils # (Auto) 0.15 0.00-0.70 K/uL Basophils # (Auto) 0.03 0.00-0.20 K/uL Absolute Immature Granulocyte (auto 0.01 0-1 K/uL Nucleated Red Blood Cells 0.0 0.0-0.19 % Sodium Level 137 136-145 mmol/L Chloride Level 102 101-111 mmol/L Carbon Dioxide Level 24 21-32 mmol/L Blood Urea Nitrogen 2 L 7-18 mg/dL Creatinine 0.9 0.5-1.3 mg/dL Glomerular Filtration Rate Calc 123 >90 mL/min Random Glucose 178 H 70-105 mg/dL Total Calcium 8.0 L 8.5-10.1 mg/dL Magnesium Level 1.80 1.80-2.40 mg/dL Lipase 118 H 16-77 U/L Test 08/15/24 09:02 08/15/24 08:14 08/15/24 07:00 08/14/24 16:04 Range/Units Triglycerides Level 157 30-200 mg/dL Cholesterol Level 242 H <200 mg/dL LDL Cholesterol 170 H 0-99 mg/dL HDL Cholesterol 41 29-71 mg/dL Blood Gas Specimen Type Arterial Arterial Blood pH 7.336 L 7.350-7.450 Arterial Blood Partial Pressure CO2 27 L 35-48 mmHg Arterial Blood Partial Pressure O2 105.7 83.0-108.0 mmHg Arterial Blood HCO3 14.2 L 21.0-28.0 mmol/L Arterial Blood Oxygen Saturation 97.6 94.0-98.0 % Arterial Blood Base Excess -9.8 L -2.0-3.0 mmol/L Blood Gas Temperature 37.0 35.5-37.0 CELSIUS Blood Gas Vent Mode RA ROOM AIR FiO2 21.0 % Blood Gas Specimen Comment LR XIN Vitamin B12 Level 470 193-986 pg/mL Vitamin D 25-Hydroxy 10.5 30.0-100.0 ng/mL Bedside Glucose Comment Notified Nurse Test 08/14/24 14:18 08/14/24 14:09 08/14/24 13:46 08/14/24 13:14 Range/Units Hemoglobin (Blood Gas) 15.5 13.5-17.5 g/dL Sodium (Blood Gas) 134 L 136-145 MMOL/L Bedside Potassium (Blood Gas) 3.9 3.4-4.5 MMOL/L Bedside Chloride (Blood Gas) 104 98-107 MMOL/L Bedside Glucose (Blood Gas) 418 H 65-95 MG/DL Bedside Ionized Calcium (Blood Gas) 1.33 1.15-1.33 MMOL/L Bedside Lactic Acid (Blood Gas) 1.72 H 0.36-0.75 MMOL/L Whole Blood Ketones Quantitative 5.2 H 0.0-0.6 mmol/L Hemoglobin A1c 11.1 H 4.0-6.0 % Estimated Average Glucose (eAG) 272 H 70-126 mg/dL C-Reactive Protein, Quantitative 10.20 H 0.5-3.0 mg/L Procalcitonin 0.06 0.05-0.5 ng/mL Thyroid Stimulating Hormone (TSH) 8.73 H 0.36-3.74 uIU/mL White Cell Morphology Comment See comments Total Bilirubin 0.7 0.2-1.0 mg/dL Aspartate Amino Transf (AST/SGOT) 16 10-37 U/L Alanine Aminotransferase (ALT/SGPT) 47 12-78 U/L Alkaline Phosphatase 152 H 50-136 U/L Total Creatine Kinase 153 21-232 U/L Total Protein 9.8 H 6.0-8.3 g/dL Albumin 4.8 3.5-5.0 g/dL Test 08/14/24 13:11 Range/Units Urine Color LIGHT-YELLOW YELLOW Urine Appearance CLOUDY H CLEAR Urine pH 5.5 5.0-8.0 Urine Specific [place] 1.030 1.001-1.031 Urine Protein 100 H NEGATIVE mg/dL Urine Glucose (UA) >=1000 H NEGATIVE mg/dL Urine Ketones 150 H NEGATIVE mg/dL Urine Occult Blood MODERATE H NEGATIVE Urine Nitrate NEGATIVE NEGATIVE Urine Bilirubin NEGATIVE NEGATIVE mg/dL Urine Urobilinogen 0.2 0.2-1.0 mg/dL Urine Leukocyte Esterase 500 H NEGATIVE Jun/uL Urine RBC 11-25 H 0-1 /HPF Urine WBC 26-50 H 0-1 /HPF Urine Squamous Epithelial Cells FEW 0-2 /HPF Urine Bacteria FEW None Seen /HPF Urine Opiates Screen NEGATIVE NEGATIVE Urine Barbiturates Screen NEGATIVE NEGATIVE Urine Phencyclidine Screen NEGATIVE NEGATIVE Urine Amphetamines Screen NEGATIVE NEGATIVE Urine Benzodiazepines Screen NEGATIVE NEGATIVE Urine Cocaine Screen NEGATIVE NEGATIVE Urine Marijuana (THC) Screen POSITIVE H NEGATIVE Current Medications Medications (Trade) Dose Ordered Sig/Rocio Route PRN Reason Start Time Stop Time Status Last Admin Dose Admin Acetaminophen (TYLenol 500MG TAB) 500 mg Q6H PRN PO MILD PAIN (1-3) 08/14/24 15:30 09/13/24 15:29 08/14/24 22:22 500 MG Atorvastatin Calcium (LIPItor 20MG) 20 mg HS PO 08/15/24 21:00 09/14/24 20:59 08/15/24 19:52 20 MG Ceftriaxone Sodium (Rocephin 2gm Inj) 2 gm Q24H IVPB 08/14/24 16:00 08/19/24 15:59 08/15/24 15:43 2 GM Dextrose/Sodium Chloride 1,000 ml @ 0 mls/hr AD IV 08/14/24 15:00 08/16/24 07:39 DC Doxycycline Hyclate (Doxycycline Hyclate) 100 mg BID PO 08/16/24 09:00 08/23/24 08:59 08/16/24 08:03 100 MG Enoxaparin Sodium (Lovenox) 30 mg DAILY SQ 08/15/24 09:00 09/14/24 08:59 08/16/24 08:04 30 MG Famotidine (Pepcid 20mg Vial) 20 mg BID IV 08/14/24 21:00 09/13/24 20:59 08/16/24 08:03 20 MG Fenofibrate (Tricor) 145 mg DAILY PO 08/15/24 09:00 09/14/24 08:59 08/16/24 08:03 145 MG Insulin Glargine (LANtus 100 UNITS/ML 10 ML VIAL) 20 units BID@0730,2100 SQ 08/14/24 21:00 09/13/24 20:59 08/16/24 08:09 20 UNITS Insulin Human Regular (humuLIN R 100 UNIT/ML 3ML) INSULIN SLIDING SCAL... ACHS SQ 08/16/24 07:30 09/15/24 07:29 08/16/24 11:33 14 UNIT Insulin Human Regular 100 unit/ Sodium Chloride 101 ml @ 0 mls/hr PROTOCOL IV 08/14/24 15:00 08/16/24 07:39 DC 08/15/24 13:09 0 MLS/HR Lactated Ringer's 1,000 ml @ 75 mls/hr [id number] IV 08/16/24 08:00 08/17/24 07:59 08/16/24 08:04 75 MLS/HR Lactated Ringer's (Lactated Ringers 1000ml) 1,000 ml ONCE IV 08/14/24 16:00 08/14/24 23:59 DC 08/14/24 16:10 1,000 ML Magnesium Sulfate 50 ml @ 0 mls/hr PROTOCOL IV 08/14/24 15:00 08/16/24 07:39 DC 08/16/24 06:33 25 MLS/HR Magnesium Sulfate 50 ml @ 0 mls/hr PROTOCOL PRN IV Hypomagnesemia 08/16/24 08:00 09/15/24 07:59 Mannitol 292 ml @ 292 mls/hr AD IV 08/14/24 15:30 08/14/24 15:06 DC Mannitol (Osmitrol 20% 250ml Bag) 58 gm AD IV 08/14/24 15:00 08/15/24 15:01 UNV Potassium Chloride 20 meq/ Sodium Chloride 1,010 ml @ 0 mls/hr PROTOCOL IV 08/14/24 15:00 08/16/24 07:39 DC 08/14/24 15:12 150 MLS/HR Potassium Chloride/Dextrose/ Sod Cl 1,000 ml @ 0 mls/hr AD IV 08/14/24 15:00 08/16/24 07:39 DC 08/15/24 23:07 150 MLS/HR Potassium Chloride 100 ml @ 50 mls/hr AD PRN IV POTASSIUM PROTOCOL 08/14/24 23:30 08/15/24 09:00 DC 08/15/24 07:15 50 MLS/HR Potassium Chloride 100 ml @ 100 mls/hr AD PRN IV POTASSIUM PROTOCOL 08/15/24 09:00 09/14/24 08:59 08/16/24 05:17 100 MLS/HR Potassium Chloride (K-Dur/Klor-Con 20meq) 20 meq AD PRN PO POTASSIUM PROTOCOL 08/15/24 09:00 09/14/24 08:59 08/16/24 11:33 20 MEQ Potassium Chloride (KCl 10% Elixir 20meq/15ml) 20 meq AD PRN PO POTASSIUM PROTOCOL 08/15/24 09:00 09/14/24 08:59 08/16/24 06:12 20 MEQ Sodium Chloride 1,000 ml @ 200 mls/hr PROTOCOL IV 08/14/24 15:00 08/16/24 07:39 DC 08/14/24 15:16 200 MLS/HR DIAGNOSTICS / RADIOLOGY: [ ] ASSESSMENT: Diabetic ketoacidosis POA Metabolic acidosis secondary to DKA Pseudohyponatremia secondary to hyperglycemia Diabetes mellitus type 2 BASHIR Suspected UTI Leukocytosis Dehydration History of alcohol use History of marijuana use History of smoking Positive for chlamydia trachomatis PLAN: - patient to be downgraded to the medical floor -off insulin drip -continue glargine 20 units b.i.d. as well as regular insulin sliding scale -critical care consultation requested, input noted and appreciated -continue to replace electrolytes IV per protocol -endocrinology consultation requested, input noted and appreciated -replace electrolytes IV per protocol -continue empiric antibiotics, follow results of septic workup, procalcitonin elevated -GI and DVT prophylaxis Disposition: The patient to be downgraded to the medical floor, he is currently off insulin drip, we will continue insulin sliding scale as well as long acting insulin with glargine 20 units subcutaneously b.i.d.. Patient positive for chlamydia, continue doxycycline. Urine culture more than [id number] CFU, identification and susceptibility in progress. Plan of action discussed, all questions answered, agreed and understood the information provided. Total ICU time spent greater than 30 minutes. ANAID GUTIERREZ MD Aug 16, 2024 12:20
[2024-08-17 04:04] LABS: BASOPHILS # (AUTO) 0.02 K/uL (0.00-0.20); BASOPHILS % (AUTO) 0.4 % (0.0-5.0); EOSINOPHILS # (AUTO) 0.18 K/uL (0.00-0.70); EOSINOPHILS % (AUTO) 3.2 % (0.0-8.0); HEMATOCRIT 35.3 % (42-54); IMMATURE GRANULOCYTE ABSOLUTE 0.02 K/uL (0-1); LYMPHOCYTES # (AUTO) 2.3 K/uL (1.0-4.8); LYMPHOCYTES % (AUTO) 40.7 % (21.0-51.0); MEAN CORPUSCULAR HEMOGLOBIN 28.5 pg (27.0-33.0); MEAN CORPUSCULAR HGB CONC 33.7 g/dL (32.0-36.0); MEAN CORPUSCULAR VOLUME 84.7 fL (79-99); MONOCYTES # (AUTO) 0.7 K/uL (0.1-1.0); NEUTROPHILS # (AUTO) 2.5 K/uL (1.8-7.7); NEUTROPHILS % (AUTO) 43.3 % (40.0-77.0); PLATELET COUNT (AUTO) 185 K/uL (130-400); RED BLOOD CELL COUNT(AUTO) 4.17 MIL/uL (4.50-6.20); RED CELL DISTRIBUTION WIDTH 15.6 % (11.0-15.5); WHITE BLOOD COUNT (AUTO) 5.7 K/uL (4.8-10.8)
[2024-08-17 04:35] LABS: ALBUMIN 2.9 g/dL (3.5-5.0); BILIRUBIN,TOTAL 0.4 mg/dL (0.2-1.0); CREATININE 0.8 mg/dL (0.5-1.3); MAGNESIUM 1.8 mg/dL (1.80-2.40); TOTAL PROTEIN, SERUM 5.9 g/dL (6.0-8.3)
[2024-08-17 04:45] LABS: POTASSIUM 2.6 mmol/L (3.5-5.1)
[2024-08-17 04:52] VITALS: BP 117/59; PULSE 76; RESP 18; TEMP 98.4
[2024-08-17] MEDS: MAGNESIUM 2GM PREMIX 50ML 50 ML IV PRN (05:13)
[2024-08-17] MEDS: INSULIN humuLIN R 100 UNIT/ML 3ML SQ SCH (07:04)
[2024-08-17 08:00] VITALS: BP 124/69; PULSE 63; RESP 18; TEMP 98; O2SAT 99
[2024-08-17] MEDS: INSULIN GLARgine 100 UNITS/ML 10 ML VIAL SQ SCH (09:43)
--- NOTE | 2024-08-17 11:46 | PN ---
[facility] PROGRESS NOTE Date of Service: Aug 17, 2024 Time of Service: 11:44 SUBJECTIVE: The patient has been seen and examined earlier this morning during my, he is in the ICU, getting IV fluids, potassium IV per protocol, as well as insulin drip. Currently he remains hemodynamically stable, BP 111/71, afebrile, saturating normal on room air. He is alert and oriented x3, denies dizziness, no headache, no chest pain, shortness shortness for breath, no nausea, no vomiting, no abdominal discomfort, no diarrhea, no constipation. No hematuria, no dysuria. No family members at bedside. 08/16 the patient has been seen and examined today during my rounding, no acute events overnight, he is off insulin drip, tolerating diet. Alert and oriented x3, BP 136/87, afebrile, saturating normal on room air, denied chest pain, no shortness a breath, no nausea, no vomiting. 08/17 the patient has been seen and examined during my rounding, no acute events overnight, downgraded from the ICU to the medical floor, hemodynamically stable, BP 124/69, afebrile, saturating normal on room air. He has been started on diabetic diet, tolerating well, no nausea, no vomiting, no abdominal pain. He is getting IV antibiotics during my visit. REVIEW OF SYSTEMS CONSTITUTIONAL: Denies fevers, chills, or night sweats. No unintentional weight loss reported. NEUROLOGICAL: Denies headache, amaurosis fugax, motor weakness, sensory deficit, vertigo/spinning sensation, gait abnormalities, or tremors. ENT: No hearing loss, otalgia, otorrhea, rhinitis, rhinorrhea, hoarseness, or sore throat. CARDIOVASCULAR: Denies any exertional angina, dyspnea on exertion, orthopnea, paroxysmal nocturnal dyspnea, palpitations, life-threatening arrhythmias, claudication. PULMONARY: Denies any shortness of breath, cough, phlegm/sputum, hemoptysis, pleuritic chest pain. SLEEP: Denies morning headaches, daytime somnolence or napping. Denies difficulty falling asleep, staying asleep, waking from sleep. Denies knowledge of snoring. GASTROINTESTINAL: Positive for nausea, vomiting. Denied any abdominal pain, constipation, diarrhea, melena, hematochezia, hematemesis GENITOURINARY: Denies frequency, urgency, nocturia, hematuria or incontinence (Storage/Irritative symptoms.) Low urinary stream, straining to void, urinary intermittency or hesitancy, splitting of the voiding stream, terminal dribbling. ENDOCRINOLOGIC: Denies polyuria, polydipsia, polyphagia or heat/cold intolerances. HEMATOLOGIC: Denies thrombophilia/previous clots, or coagulopathy/bleeding disorders. ONCOLOGIC: Denies personal history of malignancy. DERMATOLOGIC: Denies rashes or pruritus. PSYCHIATRIC: Denies any suicidal or homicidal ideation. Denies hallucinations. PHYSICAL EXAM GENERAL APPEARANCE: The patient is awake, alert, and oriented, in no acute cardiopulmonary distress. Patient is obese NEUROLOGICAL: Cranial nerves II-XII grossly intact. Motor is 5/5 in bilateral upper and lower extremities proximal to distal. No sensory deficits. HEENT: Face is symmetric. Pupils are equal and reactive. Extraocular movements are intact. NECK: Supple. No JVD. No thyromegaly. No submental, submandibular, pre- /postauricular, occipital or supraclavicular lymphadenopathy. CHEST: Normal chest expansion. No Telemetry. LUNGS: Absence of any rales, rhonchi or any wheezing. CARDIOVASCULAR: Regular. S1 and S2 normal. No appreciable rubs, murmurs or gallops. ABDOMEN: Soft, nontender, and nondistended. There is no rebound, voluntary guarding, or rigidity. : Deferred. No Moore. EXTREMITIES: Non-edematous and not cyanotic. No clubbing. Good capillary ref ill. SKIN: No skin breakdown. Vital Signs (last 8hr) Date Time Temp Pulse Resp B/P (MAP) Pulse Ox O2 Delivery O2 Flow Rate FiO2 08/17/24 08:00 98.1 63 18 124/69 99 08/17/24 04:52 98.4 76 18 117/59 98 Room Air 21 LABS: Laboratory: Test 08/17/24 05:29 08/17/24 03:49 Range/Units Whole Blood Glucose 185 H 70-110 MG/DL White Blood Count 5.7 4.8-10.8 K/uL Red Blood Count 4.17 L 4.50-6.20 MIL/uL Hemoglobin 11.9 L 14.0-18.0 g/dL Hematocrit 35.3 L 42-54 % Mean Corpuscular Volume 84.7 79-99 fL Mean Corpuscular Hemoglobin 28.5 27.0-33.0 pg Mean Corpuscular Hemoglobin Concent 33.7 32.0-36.0 g/dL Red Cell Distribution Width 15.6 H 11.0-15.5 % Platelet Count 185 130-400 K/uL Mean Platelet Volume 12.8 H 7.5-10.5 fL Immature Granulocyte % (Auto) 0.4 0-1 % Neutrophils (%) (Auto) 43.3 40.0-77.0 % Lymphocytes (%) (Auto) 40.7 21.0-51.0 % Monocytes (%) (Auto) 12.0 3.0-13.0 % Eosinophils (%) (Auto) 3.2 0.0-8.0 % Basophils (%) (Auto) 0.4 0.0-5.0 % Neutrophils # (Auto) 2.5 1.8-7.7 K/uL Lymphocytes # (Auto) 2.3 1.0-4.8 K/uL Monocytes # (Auto) 0.7 0.1-1.0 K/uL Eosinophils # (Auto) 0.18 0.00-0.70 K/uL Basophils # (Auto) 0.02 0.00-0.20 K/uL Absolute Immature Granulocyte (auto 0.02 0-1 K/uL Nucleated Red Blood Cells 0.0 0.0-0.19 % Sodium Level 138 136-145 mmol/L Potassium Level 2.6 *L 3.5-5.1 mmol/L Chloride Level 100 L 101-111 mmol/L Carbon Dioxide Level 28 21-32 mmol/L Blood Urea Nitrogen 9 7-18 mg/dL Creatinine 0.8 0.5-1.3 mg/dL Glomerular Filtration Rate Calc 128 >90 mL/min Random Glucose 180 H 70-105 mg/dL Total Calcium 8.3 L 8.5-10.1 mg/dL Magnesium Level 1.80 1.80-2.40 mg/dL Total Bilirubin 0.4 0.2-1.0 mg/dL Aspartate Amino Transf (AST/SGOT) 22 10-37 U/L Alanine Aminotransferase (ALT/SGPT) 34 12-78 U/L Alkaline Phosphatase 78 50-136 U/L Total Protein 5.9 L 6.0-8.3 g/dL Albumin 2.9 L 3.5-5.0 g/dL Lipase 175 H 16-77 U/L Current Medications Medications (Trade) Dose Ordered Sig/Rocio Route PRN Reason Start Time Stop Time Status Last Admin Dose Admin Acetaminophen (TYLenol 500MG TAB) 500 mg Q6H PRN PO MILD PAIN (1-3) 08/14/24 15:30 09/13/24 15:29 08/14/24 22:22 500 MG Atorvastatin Calcium (LIPItor 20MG) 20 mg HS PO 08/15/24 21:00 09/14/24 20:59 08/16/24 20:51 20 MG Ceftriaxone Sodium (Rocephin 2gm Inj) 2 gm Q24H IVPB 08/14/24 16:00 08/19/24 15:59 08/16/24 16:43 2 GM Dextrose/Sodium Chloride 1,000 ml @ 0 mls/hr AD IV 08/14/24 15:00 08/16/24 07:39 DC Doxycycline Hyclate (Doxycycline Hyclate) 100 mg BID PO 08/16/24 09:00 08/23/24 08:59 08/17/24 09:41 100 MG Enoxaparin Sodium (Lovenox) 30 mg DAILY SQ 08/15/24 09:00 09/14/24 08:59 08/17/24 09:41 30 MG Famotidine (Pepcid 20mg Vial) 20 mg BID IV 08/14/24 21:00 09/13/24 20:59 08/17/24 09:41 20 MG Fenofibrate (Tricor) 145 mg DAILY PO 08/15/24 09:00 09/14/24 08:59 08/17/24 09:41 145 MG Insulin Glargine (LANtus 100 UNITS/ML 10 ML VIAL) 20 units BID@0730,2100 SQ 08/14/24 21:00 08/17/24 06:14 DC 08/16/24 20:50 20 UNITS Insulin Glargine (LANtus 100 UNITS/ML 10 ML VIAL) 30 units DAILY SQ 08/17/24 09:00 09/13/24 20:59 08/17/24 09:43 30 UNITS Insulin Human Regular (humuLIN R 100 UNIT/ML 3ML) 8 unit TIDAC SQ 08/17/24 07:30 09/16/24 07:29 08/17/24 07:04 8 UNIT Insulin Human Regular (humuLIN R 100 UNIT/ML 3ML) INSULIN SLIDING SCAL... ACHS SQ 08/16/24 07:30 09/15/24 07:29 08/17/24 07:03 6 UNIT Insulin Human Regular 100 unit/ Sodium Chloride 101 ml @ 0 mls/hr PROTOCOL IV 08/14/24 15:00 08/16/24 07:39 DC 08/15/24 13:09 0 MLS/HR Lactated Ringer's 1,000 ml @ 75 mls/hr [id number] IV 08/16/24 08:00 08/17/24 07:59 DC 08/16/24 08:04 75 MLS/HR Lactated Ringer's (Lactated Ringers 1000ml) 1,000 ml ONCE IV 08/14/24 16:00 08/14/24 23:59 DC 08/14/24 16:10 1,000 ML Magnesium Sulfate 50 ml @ 0 mls/hr PROTOCOL IV 08/14/24 15:00 08/16/24 07:39 DC 08/16/24 06:33 25 MLS/HR Magnesium Sulfate 50 ml @ 0 mls/hr PROTOCOL PRN IV Hypomagnesemia 08/16/24 08:00 09/15/24 07:59 08/17/24 05:13 25 MLS/HR Mannitol 292 ml @ 292 mls/hr AD IV 08/14/24 15:30 08/14/24 15:06 DC Mannitol (Osmitrol 20% 250ml Bag) 58 gm AD IV 08/14/24 15:00 08/15/24 15:01 UNV Potassium Chloride 20 meq/ Sodium Chloride 1,010 ml @ 0 mls/hr PROTOCOL IV 08/14/24 15:00 08/16/24 07:39 DC 08/14/24 15:12 150 MLS/HR Potassium Chloride/Dextrose/ Sod Cl 1,000 ml @ 0 mls/hr AD IV 08/14/24 15:00 08/16/24 07:39 DC 08/15/24 23:07 150 MLS/HR Potassium Chloride 100 ml @ 50 mls/hr AD PRN IV POTASSIUM PROTOCOL 08/14/24 23:30 08/15/24 09:00 DC 08/15/24 07:15 50 MLS/HR Potassium Chloride 100 ml @ 100 mls/hr AD PRN IV POTASSIUM PROTOCOL 08/15/24 09:00 09/14/24 08:59 08/16/24 05:17 100 MLS/HR Potassium Chloride (K-Dur/Klor-Con 20meq) 20 meq AD PRN PO POTASSIUM PROTOCOL 08/15/24 09:00 09/14/24 08:59 08/17/24 05:14 20 MEQ Potassium Chloride (KCl 10% Elixir 20meq/15ml) 20 meq AD PRN PO POTASSIUM PROTOCOL 08/15/24 09:00 09/14/24 08:59 08/17/24 09:40 20 MEQ Sodium Chloride 1,000 ml @ 200 mls/hr PROTOCOL IV 08/14/24 15:00 08/16/24 07:39 DC 08/14/24 15:16 200 MLS/HR DIAGNOSTICS / RADIOLOGY: [ ] ASSESSMENT: Diabetic ketoacidosis POA Metabolic acidosis secondary to DKA Pseudohyponatremia secondary to hyperglycemia Diabetes mellitus type 2 BASHIR Suspected UTI Leukocytosis Dehydration History of alcohol use History of marijuana use History of smoking Positive for chlamydia trachomatis PLAN: - patient to be downgraded to the medical floor -off insulin drip -continue glargine 20 units b.i.d. as well as regular insulin sliding scale -critical care consultation requested, input noted and appreciated -continue to replace electrolytes IV per protocol -endocrinology consultation requested, input noted and appreciated -replace electrolytes IV per protocol -continue empiric antibiotics, follow results of septic workup, procalcitonin elevated -GI and DVT prophylaxis Disposition: The patient has been downgraded to the medical floor, continue glargine as well as insulin sliding scale, continue antibiotics. Replace potassium IV per protocol. Anticipate discharge home in the next 24 hours if medically stable. Plan of action discussed, all questions answered, agreed and understood the information provided. ANAID GUTIERREZ MD Aug 17, 2024 11:46
[2024-08-17 12:00] VITALS: BP 131/72; PULSE 78; RESP 18; TEMP 98.3
[2024-08-17] MEDS: PoTASSium chloRIDE 20MEQ/100ML 100 ML IV ONE (12:36)
[2024-08-17] MEDS: PoTASSium chloRIDE 20MEQ ER 20 MEQ ERTAB PO ONE (12:37)
[2024-08-17 15:58] VITALS: BP 129/73; PULSE 90; RESP 18; TEMP 98.9
[2024-08-17 16:04] LABS: ALBUMIN 3.3 g/dL (3.5-5.0); BILIRUBIN,TOTAL 0.3 mg/dL (0.2-1.0); CREATININE 0.9 mg/dL (0.5-1.3); POTASSIUM 3.6 mmol/L (3.5-5.1); TOTAL PROTEIN, SERUM 6.6 g/dL (6.0-8.3)
[2024-08-17 20:00] VITALS: BP 139/79; PULSE 97; RESP 18; TEMP 98.2; O2SAT 98
--- NOTE | 2024-08-17 21:36 | PN ---
NEPHROLOGY FOLLOWUP SUBJECTIVE: The patient offers no major complaints. No major events reported by nurses. OBJECTIVE: GENERAL: The patient is not in any acute distress. VITAL SIGNS: Blood pressure 135/54, respirations 24, pulse 108, temperature 99.5. LUNGS: Clear to auscultation. HEART: Normal cardiac sound. ABDOMEN: Soft, nondistended. EXTREMITIES: No edema. LABORATORY DATA: WBC count 16.3, hemoglobin 9.8. Sodium is 125, potassium 4.2, BUN 45 with a creatinine of 2.1. ASSESSMENT: * Acute kidney injury ____ necrosis. Renal function is improving. * Diabetes mellitus type 2. * Diabetic foot infection. * Hypertension. * Peripheral arterial disease. PLAN: Continue current management. Hydration will be limited. The patient has hyponatremia. The patient will be evaluated by surgeon due to significant peripheral disease. TID: [id number] RECEIPT: [id number]
[2024-08-18] VITALS: BP 143/76; PULSE 82; RESP 16; TEMP 98.2
[2024-08-18 04:00] VITALS: BP 108/51; PULSE 66; RESP 18; TEMP 97.7
[2024-08-18 08:00] VITALS: BP 129/67; PULSE 64; RESP 17; TEMP 98.5; O2SAT 99
[2024-08-18] MEDS: INSULIN GLARgine 100 UNITS/ML 10 ML VIAL SQ SCH (09:33)
[2024-08-18] MEDS ORDERED: DOXY100T2 PO (09:34)
[2024-08-18] MEDS ORDERED: FENO145T PO (09:34)
[2024-08-18] MEDS: INSULIN humuLIN R 100 UNIT/ML 3ML SQ SCH (09:34)
[2024-08-18] MEDS ORDERED: ATOR20TA65 PO (09:34)
--- NOTE | 2024-08-18 13:33 | PN ---
[facility] PROGRESS NOTE Date of Service: Aug 18, 2024 Time of Service: 13:31 SUBJECTIVE: The patient has been seen and examined earlier this morning during my, he is in the ICU, getting IV fluids, potassium IV per protocol, as well as insulin drip. Currently he remains hemodynamically stable, BP 111/71, afebrile, saturating normal on room air. He is alert and oriented x3, denies dizziness, no headache, no chest pain, shortness shortness for breath, no nausea, no vomiting, no abdominal discomfort, no diarrhea, no constipation. No hematuria, no dysuria. No family members at bedside. 08/16 the patient has been seen and examined today during my rounding, no acute events overnight, he is off insulin drip, tolerating diet. Alert and oriented x3, BP 136/87, afebrile, saturating normal on room air, denied chest pain, no shortness a breath, no nausea, no vomiting. 08/17 the patient has been seen and examined during my rounding, no acute events overnight, downgraded from the ICU to the medical floor, hemodynamically stable, BP 124/69, afebrile, saturating normal on room air. He has been started on diabetic diet, tolerating well, no nausea, no vomiting, no abdominal pain. He is getting IV antibiotics during my visit. 08/18 the patient has been seen and examined earlier this morning, no acute events overnight, downgraded from the ICU to the medical floor, hemodynamically stable, BP 129/67, afebrile, saturating normal on room air. The patient with a blood glucose greater than 400. Denies chest pain, shortness shortness for breath, no nausea, no vomiting. He is tolerating diet well. REVIEW OF SYSTEMS CONSTITUTIONAL: Denies fevers, chills, or night sweats. No unintentional weight loss reported. NEUROLOGICAL: Denies headache, amaurosis fugax, motor weakness, sensory deficit, vertigo/spinning sensation, gait abnormalities, or tremors. ENT: No hearing loss, otalgia, otorrhea, rhinitis, rhinorrhea, hoarseness, or sore throat. CARDIOVASCULAR: Denies any exertional angina, dyspnea on exertion, orthopnea, paroxysmal nocturnal dyspnea, palpitations, life-threatening arrhythmias, claudication. PULMONARY: Denies any shortness of breath, cough, phlegm/sputum, hemoptysis, pleuritic chest pain. SLEEP: Denies morning headaches, daytime somnolence or napping. Denies difficulty falling asleep, staying asleep, waking from sleep. Denies knowledge of snoring. GASTROINTESTINAL: Positive for nausea, vomiting. Denied any abdominal pain, constipation, diarrhea, melena, hematochezia, hematemesis GENITOURINARY: Denies frequency, urgency, nocturia, hematuria or incontinence (Storage/Irritative symptoms.) Low urinary stream, straining to void, urinary intermittency or hesitancy, splitting of the voiding stream, terminal dribbling. ENDOCRINOLOGIC: Denies polyuria, polydipsia, polyphagia or heat/cold intolerances. HEMATOLOGIC: Denies thrombophilia/previous clots, or coagulopathy/bleeding disorders. ONCOLOGIC: Denies personal history of malignancy. DERMATOLOGIC: Denies rashes or pruritus. PSYCHIATRIC: Denies any suicidal or homicidal ideation. Denies hallucinations. PHYSICAL EXAM GENERAL APPEARANCE: The patient is awake, alert, and oriented, in no acute cardiopulmonary distress. Patient is obese NEUROLOGICAL: Cranial nerves II-XII grossly intact. Motor is 5/5 in bilateral upper and lower extremities proximal to distal. No sensory deficits. HEENT: Face is symmetric. Pupils are equal and reactive. Extraocular movements are intact. NECK: Supple. No JVD. No thyromegaly. No submental, submandibular, pre- /postauricular, occipital or supraclavicular lymphadenopathy. CHEST: Normal chest expansion. No Telemetry. LUNGS: Absence of any rales, rhonchi or any wheezing. CARDIOVASCULAR: Regular. S1 and S2 normal. No appreciable rubs, murmurs or gallops. ABDOMEN: Soft, nontender, and nondistended. There is no rebound, voluntary guarding, or rigidity. : Deferred. No Moore. EXTREMITIES: Non-edematous and not cyanotic. No clubbing. Good capillary refill. SKIN: No skin breakdown. Vital Signs (last 8hr) Date Time Temp Pulse Resp B/P (MAP) Pulse Ox O2 Delivery O2 Flow Rate FiO2 08/18/24 08:00 99 Room Air* 0 21 08/18/24 08:00 98.4 64 17 129/67 99 Room Air 0.0 LABS: Laboratory: Test 08/18/24 13:12 08/17/24 15:41 08/17/24 03:49 Range/Units Whole Blood Glucose 473 *H 70-110 MG/DL Bedside Glucose Comment Notified Nurse Sodium Level 134 L 136-145 mmol/L Potassium Level 3.6 3.5-5.1 mmol/L Chloride Level 97 L 101-111 mmol/L Carbon Dioxide Level 27 21-32 mmol/L Blood Urea Nitrogen 9 7-18 mg/dL Creatinine 0.9 0.5-1.3 mg/dL Glomerular Filtration Rate Calc 123 >90 mL/min Random Glucose 283 #H 70-105 mg/dL Total Calcium 8.4 L 8.5-10.1 mg/dL Total Bilirubin 0.3 # 0.2-1.0 mg/dL Aspartate Amino Transf (AST/SGOT) 29 10-37 U/L Alanine Aminotransferase (ALT/SGPT) 42 # 12-78 U/L Alkaline Phosphatase 90 50-136 U/L Total Protein 6.6 6.0-8.3 g/dL Albumin 3.3 L 3.5-5.0 g/dL White Blood Count 5.7 4.8-10.8 K/uL Red Blood Count 4.17 L 4.50-6.20 MIL/uL Hemoglobin 11.9 L 14.0-18.0 g/dL Hematocrit 35.3 L 42-54 % Mean Corpuscular Volume 84.7 79-99 fL Mean Corpuscular Hemoglobin 28.5 27.0-33.0 pg Mean Corpuscular Hemoglobin Concent 33.7 32.0-36.0 g/dL Red Cell Distribution Width 15.6 H 11.0-15.5 % Platelet Count 185 130-400 K/uL Mean Platelet Volume 12.8 H 7.5-10.5 fL Immature Granulocyte % (Auto) 0.4 0-1 % Neutrophils (%) (Auto) 43.3 40.0-77.0 % Lymphocytes (%) (Auto) 40.7 21.0-51.0 % Monocytes (%) (Auto) 12.0 3.0-13.0 % Eosinophils (%) (Auto) 3.2 0.0-8.0 % Basophils (%) (Auto) 0.4 0.0-5.0 % Neutrophils # (Auto) 2.5 1.8-7.7 K/uL Lymphocytes # (Auto) 2.3 1.0-4.8 K/uL Monocytes # (Auto) 0.7 0.1-1.0 K/uL Eosinophils # (Auto) 0.18 0.00-0.70 K/uL Basophils # (Auto) 0.02 0.00-0.20 K/uL Absolute Immature Granulocyte (auto 0.02 0-1 K/uL Nucleated Red Blood Cells 0.0 0.0-0.19 % Magnesium Level 1.80 1.80-2.40 mg/dL Lipase 175 H 16-77 U/L Current Medications Medications (Trade) Dose Ordered Sig/Rocio Route PRN Reason Start Time Stop Time Status Last Admin Dose Admin Acetaminophen (TYLenol 500MG TAB) 500 mg Q6H PRN PO MILD PAIN (1-3) 08/14/24 15:30 09/13/24 15:29 08/14/24 22:22 500 MG Atorvastatin Calcium (LIPItor 20MG) 20 mg HS PO 08/15/24 21:00 09/14/24 20:59 08/17/24 20:21 20 MG Ceftriaxone Sodium (Rocephin 2gm Inj) 2 gm Q24H IVPB 08/14/24 16:00 08/19/24 15:59 08/17/24 15:22 2 GM Dextrose/Sodium Chloride 1,000 ml @ 0 mls/hr AD IV 08/14/24 15:00 08/16/24 07:39 DC Doxycycline Hyclate (Doxycycline Hyclate) 100 mg BID PO 08/16/24 09:00 08/23/24 08:59 08/18/24 09:24 100 MG Enoxaparin Sodium (Lovenox) 30 mg DAILY SQ 08/15/24 09:00 09/14/24 08:59 08/18/24 09:25 30 MG Famotidine (Pepcid 20mg Vial) 20 mg BID IV 08/14/24 21:00 09/13/24 20:59 08/18/24 09:24 20 MG Fenofibrate (Tricor) 145 mg DAILY PO 08/15/24 09:00 09/14/24 08:59 08/18/24 09:24 145 MG Insulin Glargine (LANtus 100 UNITS/ML 10 ML VIAL) 20 units BID@0730,2100 SQ 08/14/24 21:00 11/6/24 06:14 DC 08/16/24 20:50 20 UNITS Insulin Glargine (LANtus 100 UNITS/ML 10 ML VIAL) 30 units DAILY SQ 08/17/24 09:00 08/17/24 19:08 DC 08/17/24 09:43 30 UNITS Insulin Glargine (LANtus 100 UNITS/ML 10 ML VIAL) 40 units DAILY SQ 08/18/24 09:00 09/17/24 08:59 08/18/24 09:33 40 UNITS Insulin Human Regular (humuLIN R 100 UNIT/ML 3ML) 8 unit TIDAC SQ 08/17/24 07:30 08/17/24 19:08 DC 08/17/24 16:13 8 UNIT Insulin Human Regular (humuLIN R 100 UNIT/ML 3ML) 13 unit TIDAC SQ 08/18/24 07:30 09/17/24 07:29 08/18/24 09:34 13 UNIT Insulin Human Regular (humuLIN R 100 UNIT/ML 3ML) INSULIN SLIDING SCAL... ACHS SQ 08/16/24 07:30 09/15/24 07:29 08/18/24 12:50 20 UNIT Insulin Human Regular 100 unit/ Sodium Chloride 101 ml @ 0 mls/hr PROTOCOL IV 08/14/24 15:00 08/16/24 07:39 DC 08/15/24 13:09 0 MLS/HR Lactated Ringer's 1,000 ml @ 75 mls/hr [id number] IV 08/16/24 08:00 08/17/24 07:59 DC 08/16/24 08:04 75 MLS/HR Lactated Ringer's (Lactated Ringers 1000ml) 1,000 ml ONCE IV 08/14/24 16:00 08/14/24 23:59 DC 08/14/24 16:10 1,000 ML Magnesium Sulfate 50 ml @ 0 mls/hr PROTOCOL IV 08/14/24 15:00 08/16/24 07:39 DC 08/16/24 06:33 25 MLS/HR Magnesium Sulfate 50 ml @ 0 mls/hr PROTOCOL PRN IV Hypomagnesemia 08/16/24 08:00 09/15/24 07:59 08/17/24 05:13 25 MLS/HR Mannitol 292 ml @ 292 mls/hr AD IV 08/14/24 15:30 08/14/24 15:06 DC Mannitol (Osmitrol 20% 250ml Bag) 58 gm AD IV 08/14/24 15:00 08/15/24 15:01 UNV Potassium Chloride 20 meq/ Sodium Chloride 1,010 ml @ 0 mls/hr PROTOCOL IV 08/14/24 15:00 08/16/24 07:39 DC 08/14/24 15:12 150 MLS/HR Potassium Chloride/Dextrose/ Sod Cl 1,000 ml @ 0 mls/hr AD IV 08/14/24 15:00 08/16/24 07:39 DC 08/15/24 23:07 150 MLS/HR Potassium Chloride 100 ml @ 50 mls/hr AD PRN IV POTASSIUM PROTOCOL 08/14/24 23:30 08/15/24 09:00 DC 08/15/24 07:15 50 MLS/HR Potassium Chloride 100 ml @ 100 mls/hr AD PRN IV POTASSIUM PROTOCOL 08/15/24 09:00 09/14/24 08:59 08/16/24 05:17 100 MLS/HR Potassium Chloride (K-Dur/Klor-Con 20meq) 20 meq AD PRN PO POTASSIUM PROTOCOL 08/15/24 09:00 09/14/24 08:59 08/17/24 05:14 20 MEQ Potassium Chloride (KCl 10% Elixir 20meq/15ml) 20 meq AD PRN PO POTASSIUM PROTOCOL 08/15/24 09:00 09/14/24 08:59 08/17/24 09:40 20 MEQ Sodium Chloride 1,000 ml @ 200 mls/hr PROTOCOL IV 08/14/24 15:00 08/16/24 07:39 DC 08/14/24 15:16 200 MLS/HR DIAGNOSTICS / RADIOLOGY: [ ] ASSESSMENT: Diabetic ketoacidosis POA Metabolic acidosis secondary to DKA Pseudohyponatremia secondary to hyperglycemia Diabetes mellitus type 2 BASHIR Suspected UTI Leukocytosis Dehydration History of alcohol use History of marijuana use History of smoking Positive for chlamydia trachomatis PLAN: - patient to be downgraded to the medical floor -off insulin drip -continue glargine 20 units b.i.d. as well as regular insulin sliding scale -critical care consultation requested, input noted and appreciated -continue to replace electrolytes IV per protocol -endocrinology consultation requested, input noted and appreciated -replace electrolytes IV per protocol -continue empiric antibiotics, follow results of septic workup, procalcitonin elevated -GI and DVT prophylaxis Disposition: The patient remains admitted to the medical floor, continue glargine as well as insulin sliding scale, continue antibiotics. A.m. labs Anticipate discharge home in the next 24 hours if medically stable. Plan of action discussed, all questions answered, agreed and understood the information provided. ANAID GUTIERREZ MD Aug 18, 2024 13:33
[2024-08-18 14:15] VITALS: BP 134/69; PULSE 82; RESP 17; TEMP 98.5
[2024-08-18 16:00] VITALS: BP 122/80; PULSE 88; RESP 17; TEMP 97.3
--- NOTE | 2024-08-18 19:08 | PN ---
endocrinology progress note Date of Service: Aug 18, 2024 subjective: off insulin drip. hyperglycemia is improving but glucose trends to greater than 350 mg/dl today. insulin dose increased. REVIEW OF SYSTEMS CONSTITUTIONAL: Denies fevers, chills, or night sweats. No unintentional weight loss reported. NEUROLOGICAL: Denies headache, amaurosis fugax, motor weakness, sensory deficit, vertigo/spinning sensation, gait abnormalities, or tremors. ENT: No hearing loss, otalgia, otorrhea, rhinitis, rhinorrhea, hoarseness, or sore throat. CARDIOVASCULAR: Denies any exertional angina, dyspnea on exertion, orthopnea, paroxysmal nocturnal dyspnea, palpitations, life-threatening arrhythmias, claudication. PULMONARY: Denies any shortness of breath, cough, phlegm/sputum, hemoptysis, pleuritic chest pain. SLEEP: Denies morning headaches, daytime somnolence or napping. Denies difficulty falling asleep, staying asleep, waking from sleep. Denies knowledge of snoring. GENITOURINARY: Denies frequency, urgency, nocturia, hematuria or incontinence (Storage/Irritative symptoms.) Low urinary stream, straining to void, urinary intermittency or hesitancy, splitting of the voiding stream, terminal dribbling. ENDOCRINOLOGIC: Denies polyuria, polydipsia, polyphagia or heat/cold intolerances. HEMATOLOGIC: Denies thrombophilia/previous clots, or coagulopathy/bleeding disorders. ONCOLOGIC: Denies personal history of malignancy. DERMATOLOGIC: Denies rashes or pruritus. PSYCHIATRIC: Denies any suicidal or homicidal ideation. Denies hallucinations. PAST MEDICAL HISTORY: No significant past medical history PAST SURGICAL HISTORY: Denied any previous surgical history PAST SOCIAL HISTORY: He smokes around 1-2 cigarettes per week. He drinks six pack every weekend for three years. Also uses marijuana. Denied any other drug use FAMILY HISTORY: History of diabetes in grandmother Coded Allergies: No Known Drug Allergies (Unverified Allergy, Unknown, 08/14/24) ASSESSMENT: Diabetic ketoacidosis POA Newly diagnosed with DM-2 and hba1c was 11.1%. denies any history of dm-2, patient is currently off insulin drip. hyperglycemia is improving but glucose trends to greater than 350 mg/dl today. insulin dose increased. newly Diabetes mellitus type 2 Metabolic acidosis secondary to DKA Pseudohyponatremia secondary to hyperglycemia BASHIR - improving Suspected UTI Leukocytosis Dehydration - improved History of alcohol use History of marijuana use History of smoking PLAN: increase lantus to 60 units daily. increase regular insulin to 20 units qac before meals. continue high dose ssi. monitor glucose qx6 hourly. monitor q x 6 hourly. patient will need novolin 70/30 insulin 60 units AM, 40 units PM, metformin 500 mg bid at discharge. prescription placed in chart. Vitals/Labs Vital Signs Date Time Temp Pulse Resp B/P (MAP) Pulse Ox O2 Delivery O2 Flow Rate FiO2 08/18/24 16:00 97.3 88 17 122/80 97 Room Air 0.0 08/18/24 08:00 21 Medications Current Medications Lactated Ringer's 1,000 ml @ 0 mls/hr ONCE ONCE IV Last administered on 08/14/24at 13:18; Start 08/14/24 at 13:30; Stop 08/14/24 at 13:31; Status DC Ondansetron HCl 4 mg ONCE ONCE IVP Last administered on 08/14/24at 13:18; Start 08/14/24 at 13:30; Stop 08/14/24 at 13:31; Status DC Lidocaine HCl 10 ml ONCE ONCE PO Last administered on 08/14/24at 13:18; Start 08/14/24 at 13:30; Stop 08/14/24 at 13:31; Status DC Al Hydroxide/Mg Hydroxide 30 ml ONCE ONCE PO Last administered on 08/14/24at 13:18; Start 08/14/24 at 13:30; Stop 08/14/24 at 13:31; Status DC Pantoprazole Sodium 40 mg ONCE ONCE IVP Last administered on 08/14/24at 13:18; Start 08/14/24 at 13:30; Stop 08/14/24 at 13:31; Status DC Insulin Human Regular 5 unit ONCE ONCE IV Last administered on 08/14/24at 14:14; Start 08/14/24 at 14:00; Stop 08/14/24 at 14:01; Status DC Sodium Chloride 1,000 ml @ 200 mls/hr PROTOCOL IV Last administered on 08/14/24at 15:16; Start 08/14/24 at 15:00; Stop 08/16/24 at 07:39; Status DC Potassium Chloride/Dextrose/ Sod Cl 1,000 ml @ 0 mls/hr AD IV Last administered on 08/15/24at 23:07; Start 08/14/24 at 15:00; Stop 08/16/24 at 07:39; Status DC Potassium Chloride 20 meq/ Sodium Chloride 1,010 ml @ 0 mls/hr PROTOCOL IV Last administered on 08/14/24at 15:12; Start 08/14/24 at 15:00; Stop 08/16/24 at 07:39; Status DC Magnesium Sulfate 50 ml @ 0 mls/hr PROTOCOL IV Last administered on 08/16/24at 06:33; Start 08/14/24 at 15:00; Stop 08/16/24 at 07:39; Status DC Insulin Human Regular 100 unit/ Sodium Chloride 101 ml @ 0 mls/hr PROTOCOL IV L ast administered on 08/15/24at 13:09; Start 08/14/24 at 15:00; Stop 08/16/24 at 07:39; Status DC Mannitol 58 gm AD IV; Start 08/14/24 at 15:00; Stop 08/15/24 at 15:01; Status UNV Dextrose/Sodium Chloride 1,000 ml @ 0 mls/hr AD IV; Start 08/14/24 at 15:00; Stop 08/16/24 at 07:39; Status DC Mannitol 292 ml @ 292 mls/hr AD IV; Start 08/14/24 at 15:30; Stop 08/14/24 at 15:06; Status DC Enoxaparin Sodium 30 mg DAILY SQ Last administered on 08/18/24at 09:25; Start 08/15/24 at 09:00; Stop 09/14/24 at 08:59 Famotidine 20 mg BID IV Last administered on 08/18/24at 09:24; Start 08/14/24 at 21:00; Stop 09/13/24 at 20:59 Acetaminophen 500 mg Q6H PRN PO Last administered on 08/14/24at 22:22; Start 08/14/24 at 15:30; Stop 09/13/24 at 15:29 Lactated Ringer's 1,000 ml ONCE IV Last administered on 08/14/24at 16:10; Start 08/14/24 at 16:00; Stop 08/14/24 at 23:59; Status DC Ceftriaxone Sodium 2 gm Q24H IVPB Last administered on 08/18/24at 14:44; Start 08/14/24 at 16:00; Stop 08/19/24 at 15:59 Insulin Glargine 20 units BID@0730,2100 SQ Last administered on 08/16/24at 20:50; Start 08/14/24 at 21:00; Stop 08/17/24 at 06:14; Status DC Potassium Chloride 100 ml @ 50 mls/hr AD PRN IV Last administered on 08/15/24at 07:15; Start 08/14/24 at 23:30; Stop 08/15/24 at 09:00; Status DC Lactated Ringer's 1,000 ml ONCE ONCE IV Last administered on 08/15/24at 09:02; Start 08/15/24 at 09:00; Stop 08/15/24 at 09:01; Status DC Fenofibrate 145 mg DAILY PO Last administered on 08/18/24at 09:24; Start 08/15/24 at 09:00; Stop 09/14/24 at 08:59 Atorvastatin Calcium 20 mg HS PO Last administered on 08/17/24at 20:21; Start 08/15/24 at 21:00; Stop 09/14/24 at 20:59 Potassium Chloride 100 ml @ 100 mls/hr AD PRN IV Last administered on 08/16/24at 05:17; Start 08/15/24 at 09:00; Stop 09/14/24 at 08:59 Potassium Chloride 20 meq AD PRN PO Last administered on 08/17/24at 09:40; Start 08/15/24 at 09:00; Stop 09/14/24 at 08:59 Potassium Chloride 20 meq AD PRN PO Last administered on 08/17/24at 05:14; Start 08/15/24 at 09:00; Stop 09/14/24 at 08:59 Lactated Ringer's 2,000 ml BOLUS ONCE IV Last administered on 08/15/24at 11:52; Start 08/15/24 at 11:30; Stop 08/15/24 at 11:35; Status DC Lactated Ringer's 1,000 ml BOLUS ONCE IV Last administered on 08/15/24at 15:44; Start 08/15/24 at 14:30; Stop 08/15/24 at 14:32; Status DC Doxycycline Hyclate 100 mg BID PO Last administered on 08/18/24at 09:24; Start 08/16/24 at 09:00; Stop 08/23/24 at 08:59 Insulin Human Regular INSULIN SLIDING SCAL... ACHS SQ Last administered on 08/18/24at 12:50; Start 08/16/24 at 07:30; Stop 09/15/24 at 07:29 Lactated Ringer's 1,000 ml @ 75 mls/hr [id number] IV Last administered on 08/16/24at 08:04; Start 08/16/24 at 08:00; Stop 08/17/24 at 07:59; Status DC Magnesium Sulfate 50 ml @ 0 mls/hr PROTOCOL PRN IV Last administered on 08/17/24at 05:13; Start 08/16/24 at 08:00; Stop 09/15/24 at 07:59 Insulin Human Regular 8 unit TIDAC SQ Last administered on 08/17/24at 16:13; Start 08/17/24 at 07:30; Stop 08/17/24 at 19:08; Status DC Insulin Glargine 30 units DAILY SQ Last administered on 08/17/24at 09:43; Start 08/17/24 at 09:00; Stop 08/17/24 at 19:08; Status DC Potassium Chloride 40 meq ONCE ONCE PO Last administered on 08/17/24at 12:37; Start 08/17/24 at 12:00; Stop 08/17/24 at 12:04; Status DC Potassium Chloride 100 ml @ 50 mls/hr ONCE ONCE IV Last administered on 08/17/24at 12:36; Start 08/17/24 at 12:00; Stop 08/17/24 at 13:59; Status DC Insulin Glargine 40 units DAILY SQ Last administered on 08/18/24at 09:33; Start 08/18/24 at 09:00; Stop 08/18/24 at 19:02; Status DC Insulin Human Regular 13 unit TIDAC SQ Last administered on 08/18/24at 17:17; Start 08/18/24 at 07:30; Stop 08/18/24 at 19:02; Status DC Insulin Glargine 60 units DAILY SQ; Start 08/19/24 at 09:00; Stop 09/18/24 at 08:59; Status UNV Insulin Human Regular 20 unit TIDAC SQ; Start 08/19/24 at 07:30; Stop 09/18/24 at 07:29; Status UNV TORRES MCCORMACK MD Aug 18, 2024 19:08
[2024-08-18 20:00] VITALS: BP 136/73; PULSE 80; RESP 18; TEMP 97.7; O2SAT 99
[2024-08-19] VITALS: BP 132/74; PULSE 81; RESP 18; TEMP 98
[2024-08-19 04:00] VITALS: BP 95/61; PULSE 64; RESP 20; TEMP 98.3
[2024-08-19 04:43] LABS: HEMATOCRIT 39.2 % (42-54); MEAN CORPUSCULAR HEMOGLOBIN 29.3 pg (27.0-33.0); MEAN CORPUSCULAR HGB CONC 33.2 g/dL (32.0-36.0); MEAN CORPUSCULAR VOLUME 88.5 fL (79-99); RED BLOOD CELL COUNT(AUTO) 4.43 MIL/uL (4.50-6.20); RED CELL DISTRIBUTION WIDTH 15.5 % (11.0-15.5); WHITE BLOOD COUNT (AUTO) 7.9 K/uL (4.8-10.8)
[2024-08-19 05:01] LABS: BILIRUBIN,TOTAL 0.3 mg/dL (0.2-1.0); CREATININE 0.8 mg/dL (0.5-1.3); POTASSIUM 3.5 mmol/L (3.5-5.1); TOTAL PROTEIN, SERUM 5.9 g/dL (6.0-8.3)
[2024-08-19 07:40] VITALS: O2SAT 98
[2024-08-19] MEDS: INSULIN humuLIN R 100 UNIT/ML 3ML SQ SCH (07:41)
[2024-08-19 07:47] VITALS: BP 112/64; PULSE 66; RESP 18; TEMP 98.1
[2024-08-19] MEDS: INSULIN GLARgine 100 UNITS/ML 10 ML VIAL SQ SCH (09:09)
--- NOTE | 2024-08-19 11:44 | DS ---
Discharge Summary Hospital Course Summary: The patient initially admitted to the hospital on 08/14/2024 with the following history of the present illness: A 24-year-old male with no significant past medical history who presented to the hospital secondary to nausea, vomiting. The patient stated his symptoms began around 2-3 days ago which was associated with nausea and episodes of vomiting. He denied any chest pain, shortness of breath, abdominal pain, dysuria, falls, syncopal episode, chest pain. He denied any history of diabetes in the past and currently does not take any medications. He stated his grandmother has history of diabetes. He denied any previous hospitalizations. He also noted increasing thirst with very frequent urination. Denied any previous history of DKA or needing any hospitalizations for DKA in the past. Denied any cough, shortness of breath, arthralgia, myalgia. Labs in the ED were notable for white count of 13.0, hemoglobin was 16.7, platelet count was 370k, sodium was 132, potassium was 3.6, blood glucose was 439, alk-phos was mildly elevated, total protein was 9.8, lipase was 165, blood ketones was 5.2. Blood gas was notable for pH of 7.19/16/107.2/6.0 The patient was admitted to the intensive care unit, started on DKA protocol, critical care consultation as well as human resources file clerk consultation requested, recommendations were followed. Results of septic workup with urine positive for chlamydia but negative for Neisseria, patient is started on doxycycline. Responded satisfactorily to medical management, downgraded to the medical floor. Today the patient is hemodynamically stable, alert oriented x3, afebrile, saturating normal on room air, denied chest pain, no shortness a breath, no nausea, no vomiting, no abdominal discomfort, tolerating p.o. very well. GENERAL APPEARANCE: The patient is awake, alert, and oriented, in no acute cardiopulmonary distress. Patient is obese NEUROLOGICAL: Cranial nerves II-XII grossly intact. Motor is 5/5 in bilateral upper and lower extremities proximal to distal. No sensory deficits. HEENT: Face is symmetric. Pupils are equal and reactive. Extraocular movements are intact. NECK: Supple. No JVD. No thyromegaly. No submental, submandibular, pre- /postauricular, occipital or supraclavicular lymphadenopathy. CHEST: Normal chest expansion. No Telemetry. LUNGS: Absence of any rales, rhonchi or any wheezing. CARDIOVASCULAR: Regular. S1 and S2 normal. No appreciable rubs, murmurs or gallops. ABDOMEN: Soft, nontender, and nondistended. There is no rebound, voluntary guarding, or rigidity. : Deferred. No Moore. EXTREMITIES: Non-edematous and not cyanotic. No clubbing. Good capillary refill. SKIN: No skin breakdown. The patient to be discharged home today. [employer] Founder(s): Critical care and human resources file clerk Assessment/Plan: Final diagnosis Diabetic ketoacidosis POA Metabolic acidosis secondary to DKA Pseudohyponatremia secondary to hyperglycemia Diabetes mellitus type 2 BASHIR Suspected UTI Leukocytosis Dehydration History of alcohol use History of marijuana use History of smoking Positive for chlamydia trachomatis Discharge Instructions: The patient to follow up with his PCP as an outpatient as well as with the human resources file clerk Dr. Dumont as an outpatient. Prescription sent to the pharmacy and called into verified appropriate doses with Lantus 60 units daily and regular insulin 20 units q.a.c. before meals and to continue high-dose SSI. The patient was instructed in the proper use of insulin. He understood all the information provided, agreed to be compliant with medical management and to return to the hospital if his condition changes. Time spent arranging discharge: 31-60 minutes ANAID GUTIERREZ MD Aug 19, 2024 11:44
[2024-08-19 12:21] VITALS: BP 135/79; PULSE 86; RESP 18; TEMP 98.3
== END 2024-08-19 14:30 | disposition home or self-care (01) | DRG 871 ==
LOC: EDH 12:53 → EDHIP 12:54 → UNDOADMIN 15:18 → EDHIP 16:52 → 2BH 16:52 → 4CH 08-16 14:35
PROVIDERS: ADMIT Internal Medicine; ATTEND Internal Medicine
DX: A41.9 Sepsis, unspecified organism (principal); E11.10 Type 2 diabetes mellitus with ketoacidosis without coma; N17.0 Acute kidney failure with tubular necrosis; K85.90 Acute pancreatitis without necrosis or infection, unspecified; N30.00 Acute cystitis without hematuria; Z68.41 Body mass index [BMI] 40.0-44.9, adult; E86.0 Dehydration; A59.9 Trichomoniasis, unspecified; E66.01 Morbid (severe) obesity due to excess calories; A74.9 Chlamydial infection, unspecified; I10 Essential (primary) hypertension; F17.210 Nicotine dependence, cigarettes, uncomplicated; F12.10 Cannabis abuse, uncomplicated; E11.628 Type 2 diabetes mellitus with other skin complications; L08.9 Local infection of the skin and subcutaneous tissue, unspecified; E11.51 Type 2 diabetes mellitus with diabetic peripheral angiopathy without gangrene; Z83.3 Family history of diabetes mellitus; Z79.84 Long term (current) use of oral hypoglycemic drugs; Z56.0 Unemployment, unspecified; Z79.4 Long term (current) use of insulin
CPT/HCPCS: 36415; 36600; 71045; 80048; 80053; 80061; 80305; 81001; 82010; 82306; 82435; 82550; 82607; 82803; 82947; 82948; 83036; 83605; 83690; 83735; 84132; 84145; 84295; 84443; 84478; 85018; 85025; 85027; 86140; 87086; 87491; 87591; 93005; 96374; 96375; 99291; G0378; J0696; J1650; J1815; J2405; J2470; J3475; J3480; J3490; J7030; J7042; J7120